=== PATIENT | female | born 1970 | race Caucasian/White ===

== ENCOUNTER 2018-04-18 04:41 | Emergency (ER) | payer BC ==
[~2018-04-18] VITALS: Ht 162.6 cm; Wt 104.3 kg
[~2018-04-18 04:41] MED LIST: ALBU90OI INH; AZIT250 PO; BELPHEELB PO; BENZ100A PO; BLOOD PRESSURE MED; BUTASPCAF PO; Bactrim Ds Tab1 EACH PO; CARI350 PO; CEPH500 PO; CIPR500 PO; CLIN150 PO; CYCL10 PO; Chantix0.5 MG PO; Cleocin HCl150 MG PO; DIAZ5; DOXY100 PO; DULO30; DULO60; Dyazide 37.5-21 EACH PO; ESOM20; ESTR2 PO; ESTRADIOL; ESTRADIOL1 MG PO; FLUC150A PO; GABA600 PO; HYDACE10B PO; HYDACE5; HYDACE5 PO; HYDR1TAB94 PO; HYOS.125 SL; IBUP800; Keflex500 MG PO; LISI5; METPRE4DP PO; MUPI2TC TOP; Macrobid 100 M100 MG PO; Norco 5-325 Ta1 EACH PO; OXYACE5T PO; OXYB5 PO; Omeprazole20 M1; PHENA200 PO; PREG25; PROC25S PR; PROG100; Percocet 5-3251 EACH PO; Prilosec20 MG PO; Pyridium200 MG PO; TOLT4 PO; TRAM50 PO; Ultram50 MG PO; VICODIN 5-3001 EACH PO; Vistaril25 MG PO; Zofran Odt4 MG SL; Zofran4 MG PO
== END 2018-04-18 06:10 | disposition home or self-care (01) ==
LOC: ER 04:41
DX: S93.401A Sprain of unspecified ligament of right ankle, initial encounter (principal); F17.210 Nicotine dependence, cigarettes, uncomplicated; Z88.8 Allergy status to other drugs, medicaments and biological substances; Z79.899 Other long term (current) drug therapy; W00.0XXA Fall on same level due to ice and snow, initial encounter
CPT/HCPCS: 73590; 73600; 96372; 99283-25; J1885

== ENCOUNTER 2018-05-04 12:17 | Emergency (ER) | payer BC ==
[~2018-05-04] VITALS: Ht 162.6 cm; Wt 113.4 kg
[2018-05-04 13:45] LABS: Calcium, Ionized (POC) 1.11 mmol/L (1.10-1.46); Chloride (POC) 105 mmol/L (98-108); Creatinine (POC) 0.5 mg/dL (0.6-1.0); Glucose (ISTAT POC) 137 mg/dL (70-99); Hemoglobin (POC) 15.3 g/dL (12.0-16.0); Potassium (POC) 4.2 mmol/L (3.5-5.5); Sodium (POC) 141 mmol/L (135-148); Total CO2 (POC) 25 mmol/L (21-32)
== END 2018-05-04 14:41 | disposition home or self-care (01) ==
LOC: ER 12:17
PROVIDERS: Physician Assistant
DX: R51 Headache (principal); R03.0 Elevated blood-pressure reading, without diagnosis of hypertension; Z88.8 Allergy status to other drugs, medicaments and biological substances; Z79.899 Other long term (current) drug therapy; F17.210 Nicotine dependence, cigarettes, uncomplicated
CPT/HCPCS: 36415; 80047; 85014; 96361; 96374; 96375; 99284-25; J1100; J1200; J1885; J2405; J2765; J7030

== ENCOUNTER 2018-09-12 04:35 | Observation (INO) | payer BC ==
[~2018-09-12] VITALS: Ht 162.6 cm; Wt 137.1 kg
[2018-09-12 05:12] LABS: BASOPHILS ABSOLUTE AUTO 0.07 K/mm3 (0.00-0.23); BASOPHILS PERCENT AUTO 1 % (0-2); EOSINOPHILS ABSOLUTE AUTO 0.29 K/mm3 (0.00-0.68); EOSINOPHILS PERCENT AUTO 3 % (0-6); Hematocrit 39.5 % (33.0-51.0); Hemoglobin 12.5 g/dL (11.5-16.0); IMMATURE GRAN ABSOLUTE AUTO 0.06 K/mm3 (0.00-0.10); IMMATURE GRAN PERCENT AUTO 1 % (0-1); LYMPHOCYTES ABSOLUTE AUTO 3.59 K/mm3 (0.84-5.20); LYMPHOCYTES PERCENT AUTO 33 % (21-46); MONOCYTES ABSOLUTE AUTO 0.94 K/mm3 (0.16-1.47); MONOCYTES PERCENT AUTO 9 % (4-13); Mean Corpuscular HGB 31.5 pg (26.0-34.0); Mean Corpuscular HGB Conc 31.6 g/dL (31.5-36.5); Mean Corpuscular Volume 100 fL (80-100); Mean Platelet Volume 10.5 fL (9.1-12.4); NEUTROPHILS ABSOLUTE AUTO 6.05 K/mm3 (1.96-9.15); NEUTROPHILS PERCENT AUTO 55 % (41-73); Platelet Count 194 K/mm3 (150-400); RDW Coefficient Variation 15.1 % (11.7-14.2); RDW Standard Deviation 55.3 fL (35.1-46.3); Red Blood Cell Count 3.97 M/mm3 (3.80-5.20)
[2018-09-12] MEDS ORDERED: DULO60 PO (05:13)
[2018-09-12] MEDS ORDERED: GABA300 PO ×2 (05:14→12:02)
[2018-09-12 05:28] LABS: International Normalized Ratio 0.96; Prothrombin Time Results 10.2 Sec (9.7-11.5)
[2018-09-12 05:32] LABS: Alanine Aminotransfer (ALT/SGP 300 U/L (12-78); Albumin, Blood 2.9 g/dL (3.4-5.0); Albumin/Globulin Ratio 0.7 (0.8-1.8); Alk Phos 119 U/L (50-136); Anion Gap 6 mmol/L (6-16); Aspartate Aminotrans (AST/SGOT 41 U/L (12-37); Bilirubin, Total 0.3 mg/dL (0.1-1.0); Blood Urea Nitrogen 15 mg/dL (8-24); Bun/Creatinine Ratio 22.8 (12.0-20.0); CO2, Blood 32 mmol/L (21-32); Calcium, Blood 8.5 mg/dL (8.5-10.1); Chloride, Blood 101 mmol/L (98-108); Creatinine, Blood 0.66 mg/dL (0.40-1.00); Globulin, Blood 3.9 g/dL (2.2-4.0); Glomerular Filtration Rate >60 (60-); Glucose, Blood 133 mg/dL (70-99); Potassium, Blood 3.6 mmol/L (3.5-5.5); Sodium, Blood 139 mmol/L (136-145); Total Protein, Blood 6.8 g/dL (6.4-8.2); Troponin I 0.096 ng/mL (0.000-0.040)
[2018-09-12] MEDS ORDERED: Hydrocodone-Ap1 EA20 PO (12:03)
[2018-09-12] MEDS ORDERED: DULO30 PO (12:50)
--- NOTE | 2018-09-12 14:51 | NUR ---
ECHOCARDIOGRAM COMPLETED
[2018-09-12 16:25] LABS: C-REACTIVE PROTEIN, EXT RANGE 2.54 mg/dL (0.000-0.300)
[2018-09-12 16:28] LABS: Troponin I 0.068 ng/mL (0.000-0.040)
[2018-09-12 16:36] LABS: Source, Urine Voided
[2018-09-12 16:47] LABS: Bilirubin, Urine Neg (Neg); Blood, Urine 1+ (Neg); Glucose Qualitative, Urine Neg (Neg); Ketones, Urine Neg (Neg); Leukocyte Esterase, Urine 1+ (Neg); Nitrite, Urine Neg (Neg); Protein, Urine 1+ (Neg); Urobilinogen, Urine NORM (Normal)
[2018-09-12 17:02] LABS: Color, Urine Yellow (P-Yellow)
[2018-09-12 17:03] LABS: Appearance, Urine Clear (Clear); Red Blood Cells, Urine 0-2 /hpf (0-2)
[2018-09-12 17:04] LABS: Bacteria Mod /hpf; Squamous Epithelial Cells Mod /hpf (Few)
--- NOTE | 2018-09-12 19:19 | NUR ---
SHIFT SUMMARY KEVIN ARRIVED THIS AFTERNOON FROM THE ED. COMPLAINED OF HEAD/NECK PAIN AND LLE NUMBNESS/TINGLING. GIVEN TORADOL AND TYLENOL. DENIED NAUSEA, WANTED DIET ADVANCED, THIS IS OK PER DR FREEDMAN. ENCOURAGED HER TO START SLOW. PT LEFT FLOOR TO SMOKE, ADVISED THAT WE CANNOT READ HER HEART MONITOR UNLESS SHE IS IN THE HOSPITAL, SHE IS AWARE. INDEPENDENT IN ROOM, TOOK MEDS PRESCRIBED. CLEARANCE SWAB AND UA SENT FOR ESBL CLEARANCE. CALL LIGHT IN REACH, REPORT GIVEN TO NIGHT NURSE
--- NOTE | 2018-09-13 04:28 | NUR ---
SHIFT SUMMARY: 48 Y/O MORBID OBESE FEMALE RESTED COMFORTABLY ALL SHIFT, DECLINED TO TAKE SCHEDULED TORADOL OR ANY PRN TYLENOL ALL SHIFT, EAGER TO RETURN HOME TODAY, WENT OUTSIDE TO SMOKE X 2 THIS SHIFT WITH SPOUSE, TELEMETRY REFLECTS NSR, DENIES PAIN OR NAUSEA, BED LOW POSITION, CALL LIGHT AT SIDE.
[2018-09-13 07:29] LABS: BASOPHILS ABSOLUTE AUTO 0.07 K/mm3 (0.00-0.23); BASOPHILS PERCENT AUTO 1 % (0-2); EOSINOPHILS PERCENT AUTO 4 % (0-6); Hematocrit 38.8 % (33.0-51.0); Hemoglobin 12.1 g/dL (11.5-16.0); IMMATURE GRAN ABSOLUTE AUTO 0.05 K/mm3 (0.00-0.10); IMMATURE GRAN PERCENT AUTO 1 % (0-1); LYMPHOCYTES ABSOLUTE AUTO 3.13 K/mm3 (0.84-5.20); LYMPHOCYTES PERCENT AUTO 37 % (21-46); MONOCYTES ABSOLUTE AUTO 0.63 K/mm3 (0.16-1.47); MONOCYTES PERCENT AUTO 8 % (4-13); Mean Corpuscular HGB 31.7 pg (26.0-34.0); Mean Corpuscular HGB Conc 31.2 g/dL (31.5-36.5); Mean Corpuscular Volume 102 fL (80-100); Mean Platelet Volume 10.5 fL (9.1-12.4); NEUTROPHILS PERCENT AUTO 50 % (41-73); Platelet Count 187 K/mm3 (150-400); RDW Coefficient Variation 15.2 % (11.7-14.2); RDW Standard Deviation 56.4 fL (35.1-46.3); Red Blood Cell Count 3.82 M/mm3 (3.80-5.20); White Blood Cell Count 8.38 K/mm3 (4.00-11.30)
[2018-09-13 07:49] LABS: Magnesium, Blood 1.5 mg/dL (1.6-2.4)
[2018-09-13 07:50] LABS: Alanine Aminotransfer (ALT/SGP 212 U/L (12-78); Albumin, Blood 2.8 g/dL (3.4-5.0); Albumin/Globulin Ratio 0.7 (0.8-1.8); Alk Phos 118 U/L (50-136); Anion Gap 6 mmol/L (6-16); Aspartate Aminotrans (AST/SGOT 33 U/L (12-37); Bilirubin, Total 0.3 mg/dL (0.1-1.0); Blood Urea Nitrogen 15 mg/dL (8-24); CO2, Blood 28 mmol/L (21-32); Calcium, Blood 8.2 mg/dL (8.5-10.1); Chloride, Blood 105 mmol/L (98-108); Creatinine, Blood 0.65 mg/dL (0.40-1.00); Globulin, Blood 3.8 g/dL (2.2-4.0); Glomerular Filtration Rate >60 (60-); Glucose, Blood 146 mg/dL (70-99); Potassium, Blood 3.9 mmol/L (3.5-5.5); Sodium, Blood 139 mmol/L (136-145); Total Protein, Blood 6.6 g/dL (6.4-8.2); Troponin I 0.049 ng/mL (0.000-0.040)
[2018-09-13] MEDS ORDERED: LISI20 PO (12:01)
[2018-09-13] MEDS ORDERED: HYDCHL25 PO (12:02)
--- NOTE | 2018-09-13 14:36 | NUR ---
DISCHARGE NOTE PT LEFT WALKING WITH HER . MEDS FAXED TO PHARMACY, CASE MANAGEMENT SET UP WITH [facility] FOR PCP, PIV REMOVED. PAPERWORK REVIEWED WITH PT. BELONGINGS SENT HOME WITH PT. HTN EDUCATION AND BP MED EDUCATION GIVEN
--- NOTE | 2018-09-13 15:20 | NUR ---
DISCHARGE SUMMARY KEVIN LEFT WITH BY CAR TO GO HOME. PIV REMOVED, MEDS FAXED TO PHARMACY, PAPERWORK GONE OVER. TEACHING DONE ON IMPORTANCE OF TAKING HIGH BLOOD PRESSURE MEDS AND HOW DAMAGING UNTREATED HTN CAN BE. VAN WILL CALL HER TO SET UP NEW PCP APPT WITH [facility]
== END 2018-09-13 14:15 | disposition home or self-care (01) ==
LOC: ER 04:35 → MEDS 04:36 → ENPENDDIS 09-13 11:51 → MEDS 09-13 14:15
PROVIDERS: Emergency Medicine; ADMIT Internal Medicine
DX: I16.0 Hypertensive urgency (principal); K52.9 Noninfective gastroenteritis and colitis, unspecified; I51.7 Cardiomegaly; R77.8 Other specified abnormalities of plasma proteins; G89.29 Other chronic pain; F17.210 Nicotine dependence, cigarettes, uncomplicated; E66.01 Morbid (severe) obesity due to excess calories; Z88.8 Allergy status to other drugs, medicaments and biological substances; Z88.1 Allergy status to other antibiotic agents; Z79.899 Other long term (current) drug therapy
CPT/HCPCS: 36415; 70450; 71046; 80053; 81001; 82550; 83605; 83735; 83880; 84484; 85025; 85610; 85651; 86140; 87077; 87081; 87086; 87186; 93005; 93010; 93306; 96361; 96372; 96374; 96375; 96376; 99285-25; A9270; G0378; J1650; J1885; J2405; J3010; J7120

== ENCOUNTER 2018-10-19 18:13 | Emergency (ER) | payer BC ==
[~2018-10-19] VITALS: Ht 162.6 cm; Wt 104.3 kg
[~2018-10-19 18:13] MED LIST changes: +DULO30 PO; +DULO60 PO; +GABA300 PO; +HYDCHL25 PO; +Hydrocodone-Ap1 EA20 PO; +LISI20 PO
[2018-10-19 19:07] LABS: BASOPHILS ABSOLUTE AUTO 0.08 K/mm3 (0.00-0.23); BASOPHILS PERCENT AUTO 0 % (0-2); EOSINOPHILS ABSOLUTE AUTO 0.13 K/mm3 (0.00-0.68); EOSINOPHILS PERCENT AUTO 1 % (0-6); Hematocrit 43.6 % (33.0-51.0); Hemoglobin 14.3 g/dL (11.5-16.0); IMMATURE GRAN ABSOLUTE AUTO 0.11 K/mm3 (0.00-0.10); IMMATURE GRAN PERCENT AUTO 1 % (0-1); LYMPHOCYTES ABSOLUTE AUTO 3.64 K/mm3 (0.84-5.20); LYMPHOCYTES PERCENT AUTO 19 % (21-46); MONOCYTES ABSOLUTE AUTO 1.12 K/mm3 (0.16-1.47); MONOCYTES PERCENT AUTO 6 % (4-13); Mean Corpuscular HGB Conc 32.8 g/dL (31.5-36.5); Mean Corpuscular Volume 98 fL (80-100); NEUTROPHILS ABSOLUTE AUTO 14.46 K/mm3 (1.96-9.15); NEUTROPHILS PERCENT AUTO 74 % (41-73); RDW Coefficient Variation 14.4 % (11.7-14.2); RDW Standard Deviation 51.8 fL (35.1-46.3); Red Blood Cell Count 4.47 M/mm3 (3.80-5.20); White Blood Cell Count 19.54 K/mm3 (4.00-11.30)
[2018-10-19 19:27] LABS: Mean Platelet Volume 10.7 fL (9.1-12.4); Platelet Count 263 K/mm3 (150-400)
[2018-10-19 20:36] LABS: Alanine Aminotransfer (ALT/SGP 25 U/L (12-78); Albumin, Blood 3.4 g/dL (3.4-5.0); Albumin/Globulin Ratio 0.8 (0.8-1.8); Alk Phos 104 U/L (50-136); Anion Gap 6 mmol/L (6-16); Aspartate Aminotrans (AST/SGOT 20 U/L (12-37); Bilirubin, Total 0.6 mg/dL (0.1-1.0); Blood Urea Nitrogen 17 mg/dL (8-24); Bun/Creatinine Ratio 27.2 (12.0-20.0); CO2, Blood 29 mmol/L (21-32); Calcium, Blood 8.9 mg/dL (8.5-10.1); Chloride, Blood 102 mmol/L (98-108); Creatinine, Blood 0.62 mg/dL (0.40-1.00); Globulin, Blood 4.5 g/dL (2.2-4.0); Glomerular Filtration Rate >60 (60-); Glucose, Blood 107 mg/dL (70-99); Potassium, Blood 4.2 mmol/L (3.5-5.5); Sodium, Blood 137 mmol/L (136-145); Total Protein, Blood 7.9 g/dL (6.4-8.2)
[2018-10-19 21:05] LABS: Source, Urine Clean Catch
[2018-10-19 21:09] LABS: Bilirubin, Urine Neg (Neg); Blood, Urine 4+ (Neg); Glucose Qualitative, Urine Neg (Neg); Ketones, Urine Neg (Neg); Leukocyte Esterase, Urine 3+ (Neg); Nitrite, Urine Pos (Neg); Protein, Urine 3+ (Neg); Urobilinogen, Urine NORM (Normal); pH, Urine 6.5 (5.0-8.0)
[2018-10-19 21:18] LABS: Appearance, Urine Cloudy (Clear); Color, Urine Yellow (P-Yellow)
[2018-10-19 21:19] LABS: White Blood Cells, Urine TNTC /hpf (0-5)
[2018-10-19 21:20] LABS: Bacteria Many /hpf; Red Blood Cells, Urine 0-2 /hpf (0-2); Squamous Epithelial Cells Rare /hpf (Few)
[2018-10-19] MEDS ORDERED: CEFD300 PO (22:02)
[2018-10-19] MEDS ORDERED: Roxicodone5 MG PO (22:02)
== END 2018-10-19 22:25 | disposition home or self-care (01) ==
LOC: ER 18:13
PROVIDERS: Emergency Medicine
DX: N12 Tubulo-interstitial nephritis, not specified as acute or chronic (principal); G43.909 Migraine, unspecified, not intractable, without status migrainosus; F17.200 Nicotine dependence, unspecified, uncomplicated; Z88.8 Allergy status to other drugs, medicaments and biological substances; Z88.6 Allergy status to analgesic agent; Z79.899 Other long term (current) drug therapy
CPT/HCPCS: 36415; 74177; 80053; 81001; 83690; 85025; 87077; 87086; 87147; 87186; 96365-59; 96375; 99284-25; A9270; J0696; J1170; J1885; J2405; Q9967

== ENCOUNTER 2018-10-20 19:00 | Emergency (ER) | payer BC ==
[~2018-10-20] VITALS: Ht 162.6 cm; Wt 108.9 kg
[~2018-10-20 19:00] MED LIST changes: +CEFD300 PO; +Roxicodone5 MG PO
== END 2018-10-20 19:36 | disposition home or self-care (01) ==
LOC: ER 19:00
DX: N12 Tubulo-interstitial nephritis, not specified as acute or chronic (principal); F17.200 Nicotine dependence, unspecified, uncomplicated; Z88.8 Allergy status to other drugs, medicaments and biological substances; G43.909 Migraine, unspecified, not intractable, without status migrainosus; Z79.899 Other long term (current) drug therapy
CPT/HCPCS: 99281; A9270; A9270-GY

== ENCOUNTER 2019-02-18 11:47 | Emergency (ER) | payer BC ==
[~2019-02-18] VITALS: Ht 165.1 cm; Wt 108.9 kg
== END 2019-02-18 13:20 | disposition home or self-care (01) ==
LOC: ER 11:47
DX: R07.81 Pleurodynia (principal); G43.909 Migraine, unspecified, not intractable, without status migrainosus; Z88.8 Allergy status to other drugs, medicaments and biological substances; Z79.899 Other long term (current) drug therapy; Z87.891 Personal history of nicotine dependence; Y04.2XXA Assault by strike against or bumped into by another person, initial encounter
CPT/HCPCS: 71100; 99283-25

== ENCOUNTER 2019-05-15 13:37 | Emergency (ER) | payer OTHER ==
[~2019-05-15] VITALS: Ht 177.8 cm; Wt 136.1 kg
[~2019-05-15 13:37] MED LIST changes: -Hydrocodone-Ap1 EA20 PO; +NORCO 10-325 T1 EACH PO
[2019-05-15] MEDS ORDERED: ATORVASTATIN CA40 M1 PO (15:18)
[2019-05-15] MEDS ORDERED: GABA300 PO (15:19)
[2019-05-15] MEDS ORDERED: HYDCHL50 PO (15:20)
[2019-05-15] MEDS ORDERED: METF500 PO (15:22)
[2019-05-15 15:34] LABS: BASOPHILS ABSOLUTE AUTO 0.09 K/mm3 (0.00-0.23); BASOPHILS PERCENT AUTO 0 % (0-2); EOSINOPHILS ABSOLUTE AUTO 0.02 K/mm3 (0.00-0.68); EOSINOPHILS PERCENT AUTO 0 % (0-6); Hematocrit 41.8 % (33.0-51.0); Hemoglobin 12.7 g/dL (11.5-16.0); IMMATURE GRAN ABSOLUTE AUTO 0.45 K/mm3 (0.00-0.10); IMMATURE GRAN PERCENT AUTO 2 % (0-1); LYMPHOCYTES ABSOLUTE AUTO 2.18 K/mm3 (0.84-5.20); LYMPHOCYTES PERCENT AUTO 9 % (21-46); MONOCYTES ABSOLUTE AUTO 1.84 K/mm3 (0.16-1.47); MONOCYTES PERCENT AUTO 7 % (4-13); Mean Corpuscular HGB 31.6 pg (26.0-34.0); Mean Corpuscular HGB Conc 30.4 g/dL (31.5-36.5); Mean Corpuscular Volume 104 fL (80-100); NEUTROPHILS ABSOLUTE AUTO 20.54 K/mm3 (1.96-9.15); NEUTROPHILS PERCENT AUTO 82 % (41-73); NRBC ABSOLUTE 0.02 K/mm3 (0.00-0.02); NRBC Auto 0.1 /100 WBC (0.0-0.2); Platelet Count 341 K/mm3 (150-400); RDW Coefficient Variation 13.8 % (11.7-14.2); RDW Standard Deviation 53.7 fL (35.1-46.3); Red Blood Cell Count 4.02 M/mm3 (3.80-5.20); White Blood Cell Count 25.12 K/mm3 (4.00-11.30)
[2019-05-15 15:51] LABS: Acetaminophen, Random 5.6 ug/mL (10.0-30.0); Alanine Aminotransfer (ALT/SGP 87 U/L (12-78); Albumin, Blood 2.9 g/dL (3.4-5.0); Albumin/Globulin Ratio 0.7 (0.8-1.8); Alk Phos 146 U/L (50-136); Anion Gap 6 mmol/L (6-16); Aspartate Aminotrans (AST/SGOT 92 U/L (12-37); Bilirubin, Total 0.1 mg/dL (0.1-1.0); Blood Urea Nitrogen 22 mg/dL (8-24); Bun/Creatinine Ratio 27.2 (12.0-20.0); CO2, Blood 32 mmol/L (21-32); Calcium, Blood 8.6 mg/dL (8.5-10.1); Chloride, Blood 100 mmol/L (98-108); Creatinine, Blood 0.81 mg/dL (0.40-1.00); Ethanol (Alcohol), Blood, Med <3 mg/dL; Globulin, Blood 4.3 g/dL (2.2-4.0); Glomerular Filtration Rate >60 (60-); Glucose, Blood 130 mg/dL (70-99); Potassium, Blood 4.6 mmol/L (3.5-5.5); Salicylate 2.7 mg/dL (2.8-20.0); Sodium, Blood 138 mmol/L (136-145); Total Protein, Blood 7.2 g/dL (6.4-8.2)
[2019-05-15 15:52] LABS: U Amphetamine Screen DETECTED; U Barbituate Screen Not Detected; U Benzodiazapine Screen Not Detected; U Buprenorphine Screen Not Detected; U Cannabinoids Screen Not Detected; U Cocaine Screen Not Detected; U Methadone Screen Not Detected; U Methamphetamine Screen DETECTED; U Opiates Screen DETECTED; U Oxycodone Screen Not Detected; U Phencyclidine Screen Not Detected; U Propoxyphene Screen Not Detected
== END 2019-05-15 17:10 | disposition home or self-care (01) ==
LOC: ER 13:37
PROVIDERS: Emergency Medicine
DX: T40.2X1A Poisoning by other opioids, accidental (unintentional), initial encounter (principal); F15.10 Other stimulant abuse, uncomplicated; Z87.891 Personal history of nicotine dependence; Z79.899 Other long term (current) drug therapy
CPT/HCPCS: 36415; 80053; 85025; 96374; 99284-25; G0480; J2310

== ENCOUNTER → 2019-06-04 | Outpatient (CLI) | payer OTHER ==
[~2019-06-04] MED LIST changes: +ATORVASTATIN CA40 M1 PO; +HYDCHL50 PO; +METF500 PO
[2019-06-04 18:44] LABS: Source, Urine Clean Catch
[2019-06-04 18:47] LABS: Bilirubin, Urine Neg (Neg); Blood, Urine Neg (Neg); Glucose Qualitative, Urine Neg (Neg); Ketones, Urine 1+ (Neg); Leukocyte Esterase, Urine 1+ (Neg); Nitrite, Urine Neg (Neg); Protein, Urine Neg (Neg); Specific Gravity, Urine 1.005 (1.003-1.022); Urobilinogen, Urine 1+ (Normal)
[2019-06-04 18:55] LABS: Appearance, Urine Clear (Clear); Color, Urine Yellow (P-Yellow)
[2019-06-04 18:57] LABS: Bacteria Few /hpf; Red Blood Cells, Urine 0-2 /hpf (0-2); Squamous Epithelial Cells Few /hpf (Few)
== END | disposition home or self-care (01) ==
LOC: LAB 18:42 → LAB SHORT 18:42
PROVIDERS: Nurse Practitioner Family
DX: R32 Unspecified urinary incontinence (principal)
CPT/HCPCS: 81001; 87086

== ENCOUNTER → 2020-02-05 | Outpatient (CLI) | payer OTHER ==
[~2020-02-05] MED LIST changes: +ALPR.25; +AMLO5 PO; +AMOCLA875 PO; +ATORVASTATIN CA40 MG PO; +BISA10S PR; +BUPRENORPHINE HC8 MG SL; +DOCU LIQUI50 MG/5 ML PO; +FLUTICASONE PRO16 GM; +LACT PO; +LIOT5 PO; +Lisinopril-Hct1 EAC4 PO; +MECL25 PO; +METO25ER PO; -NORCO 10-325 T1 EACH PO; +NYSTATIN100000 UN1 PO; +Ondansetron Odt8 MG MM; +POTA10T PO; +Prinivil10 MG PO; +SULFAMETHOXAZO1 EAC1 PO; +TOLT2 PO; +VISBIOME 112.51 EACH PO; +Ventolin/Prove6.7 GM INH
[2020-02-05 20:26] LABS: Appearance, Urine Hazy (Clear); Blood, Urine 1+ (Neg); Color, Urine Yellow (P-Yellow); Glucose Qualitative, Urine Neg (Neg); Ketones, Urine 1+ (Neg); Leukocyte Esterase, Urine 2+ (Neg); Nitrite, Urine Neg (Neg); Protein, Urine 2+ (Neg); Urobilinogen, Urine 1+ (Normal)
[2020-02-05 21:09] LABS: Bilirubin, Urine 1+ (Neg)
[2020-02-05 21:10] LABS: Bacteria Mod /hpf; Mucus Light (0-Heavy); Red Blood Cells, Urine 0-2 /hpf (0-2); Squamous Epithelial Cells Mod /hpf (Few)
== END | disposition home or self-care (01) ==
LOC: LAB SHORT 12:00 → LAB 12:00
PROVIDERS: Nurse Practitioner Family
DX: N39.46 Mixed incontinence (principal)
CPT/HCPCS: 81001; 87077; 87086; 87186

== ENCOUNTER 2020-06-03 16:49 | Inpatient (IN) | payer OTHER ==
[~2020-06-03] VITALS: Ht 162.6 cm; Wt 133.0 kg
[~2020-06-03 16:49] MED LIST changes: -ALPR.25; -AMLO5 PO; -AMOCLA875 PO; -ATORVASTATIN CA40 MG PO; -BISA10S PR; -BUPRENORPHINE HC8 MG SL; -DOCU LIQUI50 MG/5 ML PO; -DULO60 PO; -FLUTICASONE PRO16 GM; -GABA300 PO; -HYDCHL50 PO; -LACT PO; -LIOT5 PO; -Lisinopril-Hct1 EAC4 PO; -MECL25 PO; -METF500 PO; -METO25ER PO; -NYSTATIN100000 UN1 PO; -Ondansetron Odt8 MG MM; -POTA10T PO; -Prinivil10 MG PO; -SULFAMETHOXAZO1 EAC1 PO; -TOLT2 PO; -VISBIOME 112.51 EACH PO; -Ventolin/Prove6.7 GM INH
[2020-06-03 17:34] LABS: Hematocrit 44.5 % (33.0-51.0); Hemoglobin 14.2 g/dL (11.5-16.0); Mean Corpuscular HGB 31.6 pg (26.0-34.0); Mean Corpuscular HGB Conc 31.9 g/dL (31.5-36.5); Mean Corpuscular Volume 99 fL (80-100); Mean Platelet Volume 10.7 fL (9.1-12.4); Platelet Count 268 K/mm3 (150-400); RDW Coefficient Variation 14.3 % (11.7-14.2); RDW Standard Deviation 52.5 fL (35.1-46.3); Red Blood Cell Count 4.49 M/mm3 (3.80-5.20); White Blood Cell Count 15.83 K/mm3 (4.00-11.30)
[2020-06-03 17:48] LABS: International Normalized Ratio 1.03; Prothrombin Time Results 11.1 Sec (9.7-11.5)
[2020-06-03 17:55] LABS: BASOPHILS ABSOLUTE MAN 0.15 K/mm3 (0.00-0.23); BASOPHILS PERCENT MAN 1 % (0-2); EOSINOPHILS PERCENT MAN 0 % (0-6); LYMPHOCYTES ABSOLUTE MAN 3.16 K/mm3 (0.84-5.20); LYMPHOCYTES PERCENT MAN 20 % (21-46); MONOCYTES ABSOLUTE MAN 1.58 K/mm3 (0.16-1.47); MONOCYTES PERCENT MAN 10 % (4-13); NEUTROPHILS ABSOLUTE MAN 10.92 K/mm3 (1.96-9.15); SEG NEUTROPHILS PERCENT MAN 69 % (41-73); TOTAL CELLS COUNTED 100
[2020-06-03 17:57] LABS: Alanine Aminotransfer (ALT/SGP 67 U/L (12-78); Albumin, Blood 3.1 g/dL (3.4-5.0); Albumin/Globulin Ratio 0.7 (0.8-1.8); Alk Phos 111 U/L (50-136); Anion Gap 4 mmol/L (6-16); Aspartate Aminotrans (AST/SGOT 99 U/L (12-37); Bilirubin, Total 0.3 mg/dL (0.1-1.0); Blood Urea Nitrogen 19 mg/dL (8-24); Bun/Creatinine Ratio 28.5 (12.0-20.0); CO2, Blood 32 mmol/L (21-32); Calcium, Blood 8.7 mg/dL (8.5-10.1); Chloride, Blood 99 mmol/L (98-108); Creatinine, Blood 0.67 mg/dL (0.40-1.00); Ethanol (Alcohol), Blood, Med <3 mg/dL; Globulin, Blood 4.3 g/dL (2.2-4.0); Glomerular Filtration Rate >60 (60-); Glucose, Blood 130 mg/dL (70-99); Sodium, Blood 135 mmol/L (136-145); Total Protein, Blood 7.4 g/dL (6.4-8.2)
[2020-06-03 18:04] LABS: Salicylate 4.6 mg/dL (2.8-20.0)
[2020-06-03 18:05] LABS: Acetaminophen, Random <2.0 ug/mL (10.0-30.0)
[2020-06-03 18:16] LABS: Osmolality, Serum 298 mos/KG (275-300)
[2020-06-03 18:19] LABS: Bicarbonate Venous 31.8 mmol/L (24.0-30.0); PCO2 Venous 55.5 mmHg (38-42); PO2 Venous 130 mmHg (38-42)
[2020-06-03 19:19] LABS: Creatine Kinase MB 5.4 ng/mL (0.0-3.6); Creatine Kinase MB Index 0.5 (0.0-4.0)
[2020-06-03 19:40] LABS: Source, Urine Catheter
[2020-06-03 19:44] LABS: Appearance, Urine Hazy (Clear); Bilirubin, Urine Neg (Neg); Blood, Urine 3+ (Neg); Color, Urine Yellow (P-Yellow); Glucose Qualitative, Urine Neg (Neg); Ketones, Urine Neg (Neg); Leukocyte Esterase, Urine 2+ (Neg); Nitrite, Urine Pos (Neg); Protein, Urine 2+ (Neg); Specific Gravity, Urine 1.025 (1.003-1.022); Urobilinogen, Urine NORM (Normal)
[2020-06-03 19:52] LABS: Hyaline Casts 0-2 /lpf (0-2)
[2020-06-03 19:53] LABS: Bacteria Many /hpf; Squamous Epithelial Cells Few /hpf (Few)
[2020-06-03 19:56] LABS: U Amphetamine Screen DETECTED; U Barbituate Screen Not Detected; U Benzodiazapine Screen Not Detected; U Buprenorphine Screen DETECTED; U Cannabinoids Screen Not Detected; U Cocaine Screen Not Detected; U Methadone Screen Not Detected; U Methamphetamine Screen DETECTED; U Opiates Screen Not Detected; U Oxycodone Screen Not Detected; U Phencyclidine Screen Not Detected; U Propoxyphene Screen Not Detected
[2020-06-03] MEDS ORDERED: BUPRENORPHINE HC8 MG SL (20:45)
[2020-06-03] MEDS ORDERED: Ventolin/Prove6.7 GM INH (20:45)
[2020-06-03] MEDS ORDERED: DULO60 PO (20:46)
[2020-06-03] MEDS ORDERED: HYDACE10B PO (20:46)
[2020-06-03] MEDS ORDERED: GABA300 PO ×3 (20:47)
[2020-06-03] MEDS ORDERED: METF500 PO (20:48)
[2020-06-03] MEDS ORDERED: HYDCHL50 PO (20:48)
[2020-06-03] MEDS ORDERED: FLUTICASONE PRO16 GM (20:49)
[2020-06-03] MEDS ORDERED: Bactrim Ds Tab1 EACH PO (21:41)
[2020-06-04 01:50] LABS: Creatine Kinase MB 3.6 ng/mL (0.0-3.6); Creatine Kinase MB Index 0.5 (0.0-4.0)
[2020-06-04 06:23] LABS: BASOPHILS ABSOLUTE AUTO 0.09 K/mm3 (0.00-0.23); BASOPHILS PERCENT AUTO 1 % (0-2); EOSINOPHILS ABSOLUTE AUTO 0.11 K/mm3 (0.00-0.68); EOSINOPHILS PERCENT AUTO 1 % (0-6); Hematocrit 44.9 % (33.0-51.0); Hemoglobin 14.1 g/dL (11.5-16.0); IMMATURE GRAN ABSOLUTE AUTO 0.08 K/mm3 (0.00-0.10); IMMATURE GRAN PERCENT AUTO 1 % (0-1); LYMPHOCYTES ABSOLUTE AUTO 3.39 K/mm3 (0.84-5.20); LYMPHOCYTES PERCENT AUTO 22 % (21-46); MONOCYTES ABSOLUTE AUTO 1.18 K/mm3 (0.16-1.47); MONOCYTES PERCENT AUTO 8 % (4-13); Mean Corpuscular HGB 31.6 pg (26.0-34.0); Mean Corpuscular HGB Conc 31.4 g/dL (31.5-36.5); Mean Corpuscular Volume 101 fL (80-100); Mean Platelet Volume 10.6 fL (9.1-12.4); NEUTROPHILS ABSOLUTE AUTO 10.43 K/mm3 (1.96-9.15); NEUTROPHILS PERCENT AUTO 68 % (41-73); Platelet Count 254 K/mm3 (150-400); RDW Coefficient Variation 14.2 % (11.7-14.2); Red Blood Cell Count 4.46 M/mm3 (3.80-5.20); White Blood Cell Count 15.28 K/mm3 (4.00-11.30)
[2020-06-04 06:40] LABS: Anion Gap 3 mmol/L (6-16); Blood Urea Nitrogen 16 mg/dL (8-24); Bun/Creatinine Ratio 21.7 (12.0-20.0); CO2, Blood 38 mmol/L (21-32); Calcium, Blood 8.6 mg/dL (8.5-10.1); Chloride, Blood 100 mmol/L (98-108); Creatinine, Blood 0.74 mg/dL (0.40-1.00); Glomerular Filtration Rate >60 (60-); Glucose, Blood 128 mg/dL (70-99); Potassium, Blood 3.7 mmol/L (3.5-5.5); Sodium, Blood 141 mmol/L (136-145)
--- NOTE | 2020-06-04 14:32 | NUR ---
HALDOL 2.5MG AND ADDITIONAL ATIVAN WERE GIVEN PER V/O FROM DR FREEDMAN
--- NOTE | 2020-06-04 15:30 | NUR ---
PT ARRIVAL... PT ARRIVED ON UNIT AT 1515, PT LAYING ON THE BED QUIET WITH EYES CLOSED AND SNORING. PT WAS MOVED OVER TO THE BED WITH 6 PERSON TRANSFER AND A SLIDER SHEET. PT WOKE, WAS DROWSY AND WAS ATTEMPTING TO PULL OUT HER NC. PT WAS QUICKLY PUT BACK INTO RESTRAINTS. PT IS HYPERTENSIVE ON ARRIVAL WITH BP AT 172/92, SR IN THE 60'S. TEMP 97.0. PT IS ON 3 L NC WITH O2 SATS AT 93%. PRECEDEX STARTED PER ORDERS. WILL CONTINUE TO MONITOR.
[2020-06-04] MEDS ORDERED: ALPR.25 (15:43)
--- NOTE | 2020-06-04 20:00 | NUR ---
ASSUMED PT CARE REPORT RECEIVED FROM FORD GARCIA AT 1910, ASSUMED PT CARE. PT CURRENTLY SEDATED ON PRECEDEX INF @ 0.4MCG/KG/HR TO LEFT FA ACCESS. DRESSING C/D/I, SITE WNL. NEW IV STARTED TO RIGHT AC, 20G, DRESSING PLACED. PT LUNG SOUNDS CLEAR TO UPPER AND DIMINISHED TO LOWER. PT ON 5L O2 PER NC. HR SINUS, SBP ELEVATED. ABD SOFT, BOWEL TONES PRESENT. UPPER EXT EDEMATOUS. SOFT WRIST RESTRAINTS SECURE TO WRISTS. PT RESPONSIVE TO VERBAL STIMULATION. DOES NOT ANSWER QUESTIONS. SEE FULL SHIFT ASSESSMENT.
[2020-06-05 03:37] LABS: BASOPHILS ABSOLUTE AUTO 0.07 K/mm3 (0.00-0.23); BASOPHILS PERCENT AUTO 1 % (0-2); EOSINOPHILS ABSOLUTE AUTO 0.28 K/mm3 (0.00-0.68); EOSINOPHILS PERCENT AUTO 3 % (0-6); Hematocrit 41.4 % (33.0-51.0); Hemoglobin 12.9 g/dL (11.5-16.0); IMMATURE GRAN ABSOLUTE AUTO 0.03 K/mm3 (0.00-0.10); IMMATURE GRAN PERCENT AUTO 0 % (0-1); LYMPHOCYTES ABSOLUTE AUTO 2.85 K/mm3 (0.84-5.20); LYMPHOCYTES PERCENT AUTO 28 % (21-46); MONOCYTES ABSOLUTE AUTO 0.57 K/mm3 (0.16-1.47); MONOCYTES PERCENT AUTO 6 % (4-13); Mean Corpuscular HGB Conc 31.2 g/dL (31.5-36.5); Mean Corpuscular Volume 100 fL (80-100); Mean Platelet Volume 10.6 fL (9.1-12.4); NEUTROPHILS ABSOLUTE AUTO 6.24 K/mm3 (1.96-9.15); NEUTROPHILS PERCENT AUTO 62 % (41-73); Platelet Count 222 K/mm3 (150-400); RDW Standard Deviation 51.1 fL (35.1-46.3); Red Blood Cell Count 4.16 M/mm3 (3.80-5.20); White Blood Cell Count 10.04 K/mm3 (4.00-11.30)
[2020-06-05 04:07] LABS: Alanine Aminotransfer (ALT/SGP 70 U/L (12-78); Albumin, Blood 2.7 g/dL (3.4-5.0); Albumin/Globulin Ratio 0.7 (0.8-1.8); Alk Phos 92 U/L (50-136); Anion Gap 4 mmol/L (6-16); Aspartate Aminotrans (AST/SGOT 64 U/L (12-37); Bilirubin, Total 0.4 mg/dL (0.1-1.0); Blood Urea Nitrogen 14 mg/dL (8-24); Bun/Creatinine Ratio 24.3 (12.0-20.0); CO2, Blood 35 mmol/L (21-32); CPK Creatine Kinase 270 U/L (26-193); Calcium, Blood 8.3 mg/dL (8.5-10.1); Chloride, Blood 104 mmol/L (98-108); Creatinine, Blood 0.58 mg/dL (0.40-1.00); Globulin, Blood 3.7 g/dL (2.2-4.0); Glomerular Filtration Rate >60 (60-); Glucose, Blood 110 mg/dL (70-99); Potassium, Blood 3.7 mmol/L (3.5-5.5); Sodium, Blood 143 mmol/L (136-145); Total Protein, Blood 6.4 g/dL (6.4-8.2); Troponin I 0.051 ng/mL (0.000-0.040)
[2020-06-05 04:20] LABS: Creatine Kinase MB Index 0.4 (0.0-4.0)
--- NOTE | 2020-06-05 06:08 | NUR ---
SHIFT SUMMARY PT CONTINUES TO BE SEDATED ON PRECEDEX (NOW AT 0.2MCG). NS INFUSING AT 100ML/HR. PT HAS 2 NEW IVS, 20G TO RIGHT AC AND 20G TO RIGHT HAND. BOTH SITES WLO, DRESSING C/D/I. SBP IMPROVED. LUNGS REMAIN CLEAR. O2 SATS >90 5 ON 3L PER NC. PT MUMBLING/SCREAMING LESS. REQUIRE A FEW DOSES OF PRN ATIVAN. BILATERAL SOFT RESTRAINTS SECURE. PT INCONTINENT OF URINE THROUGHOUT SHIFT. ATTENDS IN PLACE. WILL CONTINUE TO MONITOR AND REPORT TO ONCOMING SHIFT.
--- NOTE | 2020-06-05 07:45 | NUR ---
ASSUMED CARE RECEIVED REPORT FROM RADHA JONES. PT IS OBTUNDED - IN BED, ON 3L NC. SPO2 91%; MAP > 65; HR AT 48. PRECEDEX AT 0.2 MCG/KG/HOUR. NS AT 100 ML/HR. BED LOW AND LOCKED.
--- NOTE | 2020-06-05 11:38 | NUR ---
UPDATE DR. BURRELL WANTS TO HAVE PT TRY ANOTHER SBT. RT SWITCHED PT BACK TO SPONTANEOUS MODE. WILL CONTINUE TO MONITOR.
--- NOTE | 2020-06-05 12:33 | NUR ---
UPDATE PT WOKE UP, AND WAS SPEAKING IN COHERENT SENTENCES, ASKING WHERE SHE WAS AND WHAT WAS HAPPENING. SHE WAS ABLE TO TELL ME HER NAME, AND WHAT YEAR IT WAS, BUT NOT PLACE, SURROUNDINGS, OR EVENT. SHE WAS CONFUSED WHEN I TOLD HER ABOUT HER OVERDOSE. WE CLEANED HER UP, AND PUT ON A NEW ATTENDS. SHE WAS PULLING ON HER IV, AND TAKING HER OXYGEN OFF, AND APPEARED TO BE A LITTLE ANXIOUS AND STILL NOT COMPREHENDING WHAT WAS HAPPENING. SHE IS HAVING DIFFICULTY WITH HER SHORT TERM MEMORY, SHE COULDN'T TELL ME WHERE SHE WAS AFTER I HAD TOLD HER. SHE IS BACK TO SLEEP, NOW 4L OF OXYGEN. SHE HAD DENIED CHEST PAIN, SOB, ANXIETY, AND ANY MAJOR DISCOMFORT. HER MAIN ISSUE WAS TRYING TO GET UP, AND WAS CONFUSED WHY SHE COULDN'T GET UP (DIDN'T KNOW THAT IT WOULD BE A SAFETY CONCERN, AND SHE DIDN'T KNOW HOW LONG SHE HAD BEEN SLEEPING). RESTRAINTS REMAIN IN PLACE FOR THE TIME BEING, SHE CONTINUED TO PULL ON IVs AND OXYGEN. WILL CONTINUE TO MONITOR AND REASSESS.
--- NOTE | 2020-06-05 14:00 | NUR ---
UPDATE PT STARTING TO BECOME MORE AGITATED AND ANXIOUS, ATTEMPTING TO GET OUT OF BED, PULLING HER OXYGEN OFF - CAUSING HER SPO2 TO DROP IN THE 86-88% RANGE SO HER OXYGEN WAS TURNED UP TO 4L - AND YELLING OUT. SHE BELIEVES HER IS IN THE HOSPITAL AND THAT "WE" SHOULD KNOW THIS ALREADY. HALDOL WAS GIVEN, TO ENSURE PT SAFETY, PRECEDEX TURNED UP TO 0.3 MCG/KG/HOUR, HER HR WAS WNL. PT HAS BEEN SLEEPING SINCE, MAP >65, SPO2 93-96%. BED LOW AND LOCKED. CALLED AND UPDATED.
--- NOTE | 2020-06-05 18:00 | NUR ---
UPDATE/END OF SHIFT AFTER LAST NOTE, NO MAJOR OR ACUTE EVENTS. PT HAS BEEN RESTING/SLEEPING ON PRECEDEX 0.2 MCG/KG/HR. PT IS INTERMITTENTLY HYPERTENSIVE, HR ~50. REMAINS ON 4L WITH SPO2 93%. NS INFUSING AT 100 ML/HR. BED LOW AND LOCKED. UPDATED.
--- NOTE | 2020-06-05 18:24 | NUR ---
UPDATE AFTER REPOSITIONING PT WOKE UP AGITATED, PULLING ON RESTRAINTS, HOLDING HER BREATH AND BEARING DOWN, PULLED HER OXYGEN OFF, AND DESATTED INTO THE 80s%. HALDOL NOT AVAILABLE FOR ANOTHER DOSE, 1 MG OF ATIVAN GIVEN IV, PT CURRENTLY RESTING AGAIN. PRECEDEX REMAINS AT 0.2 MCG/KG/HR, THE HR IS IN THE 49-52 RANGE.
--- NOTE | 2020-06-05 19:20 | NUR ---
ASSUMPTION OF CARE RECEIVED REPORT FROM NADINE GARCIA AT 1900. ASSUMED CARE OF PATIENT. PATIENT CALLING OUT "HELLO" AND "HELP". ASKED PATIENT WHAT THEY NEEDED HELP WITH, PATIENT SAID SHE DIDN'T KNOW. PATIENT FOLLOWED COMMANDS OF OPENING EYES AND DEEP BREATHING BUT DID NOT KNOW WHERE SHE WAS OR THE SITUATION. PATIENT MAKING GRUNTING NOISES BUT DENIED PAIN. REPOSITIONED PATIENT. WILL REVIEW ORDERS AND TREAT PRESCRIED.
--- NOTE | 2020-06-06 | NUR ---
REASSESSMENT NO ACUTE CHANGES FROM INITIAL ASSESSMENT. PATIENT SPONTANEOUSLY AWAKENS, CALLS OUT. ASKS FOR MOM. DOES NOT KNOW WHERE SHE IS OR WHY SHE IN THE HOSPITAL. REORIENTATION PROVIDED, PATIENT REMAINED CONFUSED. ORAL CARE PROVIDED VIA MOUTH SWABS. 02 AT 5L VIA NC MAINTAINING SATS ABOVE 95%. PRECEDEX INFUSING FOR AGITATION. WILL CONTINUE TO MONITOR.
--- NOTE | 2020-06-06 02:13 | NUR ---
AGITATION PATIENT AWAKE ON 0.3MCG/KG OF PRECEDEX, ASKING FOR WATER AND STATING SHE FELT DRY. ORAL CARE PROVIDED AND SMALL SIPS OF WATER PROVIDED. HUMIDIFER ADDED TO OXYGEN AND O2 DECREASED TO 3L VIA NC. ASSISTED PATIENT TO BLOW HER NOSE. ORIENTED PATIENT TO PLACE AND SITUATION. PATIENT WITH CLEAR SPEECH, COOPERATIVE. WITHIN MINUTES PATIENT STARTED SCREAMING "GIVE ME SOMETHING IN MY MOUTH" AND "JUST PUT ME TO SLEEP, I HATE BEING AWAKE AND ANXIOUS". RN EDUCATED PATIENT TO MEDICATIONS BEING GIVEN FOR ANXIETY. PATIENT YELLING CONSTANTLY "JUST PUT ME TO SLEEP" PATIENT CRYING AND SCREAMING OUT LOUD. SCREAMING FOR HER DAD AND MOM. WHEN NURSE TRIED TO EXPLAIN THAT SHE HAD PROVIDED THE PATIENT WITH WATER AND MOISTURE FOR HER OXYGEN AND SHE WAS RECEIVING MEDICATIONS FOR ANXIETY. PATIENT THEN TOLD NURSE SHE COULDN'T BREATHING WHILE SCREAMING IT LOUDLY ACROSS THE UNIT. SATS ABOVE 95% WITH 3L [address]. EXPLAINED TO PATIENT SHE WAS BREATHING, PATIENT YELLED "YOU BITCH, GET OUT OF HERE" UPON RN LEAVING ROOM PATIENT CONTINUED TO SCREAM. WHEN ASKED TO STOP SCREAMING PATIENT JUST YELLED IN STAFF'S FACE. PRECEDEX INCREASED TO 0.5MCG/KG.
[2020-06-06 03:36] LABS: BASOPHILS ABSOLUTE AUTO 0.07 K/mm3 (0.00-0.23); BASOPHILS PERCENT AUTO 1 % (0-2); EOSINOPHILS ABSOLUTE AUTO 0.21 K/mm3 (0.00-0.68); EOSINOPHILS PERCENT AUTO 3 % (0-6); Hemoglobin 12.9 g/dL (11.5-16.0); IMMATURE GRAN ABSOLUTE AUTO 0.02 K/mm3 (0.00-0.10); IMMATURE GRAN PERCENT AUTO 0 % (0-1); LYMPHOCYTES ABSOLUTE AUTO 1.78 K/mm3 (0.84-5.20); LYMPHOCYTES PERCENT AUTO 22 % (21-46); MONOCYTES ABSOLUTE AUTO 0.68 K/mm3 (0.16-1.47); MONOCYTES PERCENT AUTO 8 % (4-13); Mean Corpuscular HGB Conc 30.7 g/dL (31.5-36.5); Mean Corpuscular Volume 101 fL (80-100); Mean Platelet Volume 10.4 fL (9.1-12.4); NEUTROPHILS ABSOLUTE AUTO 5.38 K/mm3 (1.96-9.15); NEUTROPHILS PERCENT AUTO 66 % (41-73); Platelet Count 214 K/mm3 (150-400); RDW Coefficient Variation 14.4 % (11.7-14.2); RDW Standard Deviation 53.1 fL (35.1-46.3); Red Blood Cell Count 4.16 M/mm3 (3.80-5.20); White Blood Cell Count 8.14 K/mm3 (4.00-11.30)
[2020-06-06 03:55] LABS: Alanine Aminotransfer (ALT/SGP 62 U/L (12-78); Albumin, Blood 2.6 g/dL (3.4-5.0); Albumin/Globulin Ratio 0.7 (0.8-1.8); Alk Phos 90 U/L (50-136); Anion Gap 3 mmol/L (6-16); Aspartate Aminotrans (AST/SGOT 39 U/L (12-37); Bilirubin, Total 0.7 mg/dL (0.1-1.0); Blood Urea Nitrogen 13 mg/dL (8-24); Bun/Creatinine Ratio 20.2 (12.0-20.0); CO2, Blood 32 mmol/L (21-32); Calcium, Blood 8.1 mg/dL (8.5-10.1); Chloride, Blood 110 mmol/L (98-108); Creatinine, Blood 0.64 mg/dL (0.40-1.00); Globulin, Blood 3.8 g/dL (2.2-4.0); Glomerular Filtration Rate >60 (60-); Glucose, Blood 111 mg/dL (70-99); Potassium, Blood 3.7 mmol/L (3.5-5.5); Sodium, Blood 145 mmol/L (136-145); Total Protein, Blood 6.4 g/dL (6.4-8.2)
--- NOTE | 2020-06-06 04:06 | NUR ---
REASSESSMENT NO ACUTE CHANGES FROM PREVIOUS ASSESSMENT. VITALS STABLE. PRECEDEX TITRATED DOWN TO 0.4MCG/KG. PATIENT APPEARS COMFORTABLE, WITH EYES CLOSED. RESP E/U. 5L [address]. REPOSITIONED FOR COMFORT. WILL CONTINUE TO MONITOR.
--- NOTE | 2020-06-06 05:56 | NUR ---
SHIFT SUMMARY PATIENT BEGAN SHIFT RESTFUL WITH PRECEDEX, UPON FIRST REPOSITIONING PATIENT BECAME AGITATED, CALLING OUT RESPONDED WELL TO INCREASE OF PRECEDEX. PRECEDEX TITRATED FOR HEART RATE AND FOR PATIENT'S AGITATION. RESTRAINTS IN PLACE DUE TO PATIENT PULLING AT LINES WHEN RESTRAINTS WERE REMOVED. PATIENT DOES NOT ANSWER ORIENTATION QUESTIONS APPROPRIATELY. OFTEN ASKS FOR HER MOM OR DAD AND SCREAMS OUT. O2 TITRATED FROM 3-5L VIA NC NEEDED FOR SATS TO MAINTAIN ABOVE 95%. REPOSITIONED FOR COMFORT. INCONTINENT OF URINE, ATTENDS IN PLACE. FREQUENT ORAL CARE PROVIDED. WILL CONTINUE TO MONITOR AND REPORT TO ONCOMING RN.
--- NOTE | 2020-06-06 06:22 | NUR ---
UPDATE PATIENT AWOKE DURING REPOSITIONING. A/O ASKING HOW LONG SHE HAS BEEN IN THE HOSPITAL. STATING SHE FEELS DRY IN HER NOSE AND MOUTH AND ASKING IF SHE CAN GET UP AND TAKE A SHOWER. WHEN PATIENT COMMUNICATES SHE USES A CRYING VOICE AND KEEPS ASKING WHY WHEN IT IS EXPLAINED THAT SHE CAN'T GET UP ON HER OWN YET OR TAKE A SHOWER WHILE IN ICU. WATER PROVIDED, PATIENT DRANK WITHOUT DIFFICULTIES. TITRATED PRECEDEX DOWN AND TRIALING PATIENT ON ROOM AIR.
--- NOTE | 2020-06-06 07:25 | NUR ---
ASSUMED CARE RECEIVED REPORT FROM RADHA GRIGGS. PT SITTING UP IN BED ASLEEP, ON 2L NC WITH HUMIDITY. SPO2 93%. PRECEDEX IS INFUSING AT 0.2 MCG/KG/HR AND NS AT 100 ML/HR. SWB RESTRAINTS SECURED TO PT AND BED. BED LOW AND LOCKED. CALL LIGHT WITHIN REACH. PT IN SINUS BRADYCARDIA RATE 49-52. BP STABLE.
--- NOTE | 2020-06-06 10:49 | NUR ---
UPDATE PT AWAKE, WATCHING TV IN ROOM - SHE IS CALM, COOPERATIVE, AND ASKING MORE QUESTIONS ABOUT WHY SHES HERE. PT IS ORIENTED TO SELF, SURROUNDINGS, YEAR, AND - BUT UNCLEAR OF HER SITUATION. SHE STATES SHE DOES NOT REMEMBER TAKING ANY DRUGS, AND WAS SURPRISED BY HEARING SHE OVERDOSED. PT HAS BEEN ABLE TO REMEMBER MORE INFORMATION AND COMMUNICATES APPROPRIATELY. SHE HAS BEEN ASKING WHEN SHE CAN GO HOME. PT OFF OF OXYGEN AND ON ROOM AIR, WITH SPO2 90-96% - FOR SOME REASON SHE WILL START TO HOLD HER BREATH AND BEAR DOWN INTERMITTENTLY - WHEN ASKED WHY SHE DOES THIS - SHE SAYS ITS BECAUSE SHES COLD. SPECIALLY ON HER LEFT SIDE, HER SKIN IS WARM TO TOUCH. WARM BLANKETS GIVEN, THERMASTAT INCREASED. PT DENIES PAIN AND SOB. WILL CONTINUE TO MONITOR. PT REMAINS OFF PRECEDEX.
--- NOTE | 2020-06-06 12:22 | NUR ---
UPDATE PT WAS ABLE TO GET TO BEDSIDE COMMODE WITH A +2 ASSIST AND THE WALKER, SHE HAD A DIARRHEAL BM, NO SIGNS OF BLOOD/BLEEDING, THOUGH PT WAS STRAINING. AFTER CLEANED UP SHE MOVED TO THE CHAIR AND ASSISTED WITH HER BATH. AFTERWARDS PT REQUESTED TO GO BACK IN BED. SHE IS NOW ASLEEP, SPO2 DROPPED TO MID 80s% SO 2L NC PLACED BACK ON. DR. EPPS CHANGED HER STATUS TO MEDICAL, ORDERED PHYSICAL THERAPY TO EVALUATE AND TREAT BEFORE CONSIDERING DISCHARGE. PT WAS C/O BACK PAIN, AND HAS CHRONIC BACK PAIN, NORCO WAS ADDED TO HER EMAR SHE TAKES THAT AT HOME. PT HAS BEEN SIPPING ON PO FLUIDS WELL WITH NO EVIDENCE OF ASPIRATION, PT WAS ABLE TO TOLERATE JELLO. WILL ADVANCE TOLERATE. WILL CONTINUE TO MONITOR. VSS. BED LOW AND LOCKED. CALL LIGHT WITHIN REACH.
--- NOTE | 2020-06-06 14:56 | NUR ---
UPDATE PT ABLE TO AMBULATE WITH WALKER AND SBA (FOR PRECAUTION), BUT REQUIRES ASSISTANCE STANDING UP FROM THE CHAIR OR BED. SHE HAS BEEN IN THE CHAIR FOR A FEW HOURS NOW, AND WALKED AROUND THE UNIT TO THE DOOR AND BACK TO HER ROOM. AT BEDSIDE. PT CAN BE TEARFUL, EMOTIONAL, IMPULSIVE, AND IMPATIENT WITH CARE. SHE HAS BEEN USING THE CALL LIGHT VERY FREQUENTLY. SHE IS GETTING STRONGER, BUT STILL WILL REQUIRE EVALUATION FROM PHYSICAL THERAPY TO MAKE SURE ITS SAFE BEFORE SENDING HER HOME.
--- NOTE | 2020-06-06 18:39 | NUR ---
END OF SHIFT UPDATE PT HAS MADE GREAT PROGRESS T/O SHIFT. SHE IS AMBULATING WELL WITH THE WALKER IN HER ROOM. SHE IS ALERT AND ORIENTED X 4, THOUGH STATES SHE DOESN'T REMEMBER THE METH, OR OPIATES, AND STATES SHE DOESN'T THINK SHE OVERDOSED. SHE IS COOPERATIVE WITH CARE, AND WORKED WITH PHYSICAL THERAPY TODAY, THEY RECCOMMENDED THAT WHEN SHES HOME - THAT SHE WILL NEED HOME HEALTH PHYSICAL THERAPY, AND A WALKER. PT HAS BEEN C/O HER CHRONIC BACK PAIN, AND HAS BEEN TAKING NORCO FOR THE PAIN. SHE IS ON ROOM AIR. BED LOW AND LOCKED. CALL LIGHT WITHIN REACH.
--- NOTE | 2020-06-06 23:53 | NUR ---
ASSUMPTION OF CARE REPORT RECEIVED FROM NADINE GARCIA. PT SITTING IN CHAIR WATCHING TV, REQUESTING TO GET BACK IN BED TO SLEEP. PT TALKING ABOUT GOING HOME, ANXIOUS TO LEAVE HOSPITAL. COMPLAINING OF BACK AND L SHOULDER PAIN, MEDICATED PER CHART. IV CURRENTLY SALINE LOCKED.
--- NOTE | 2020-06-07 00:25 | NUR ---
PT MOVING TO ROOM 303, REPORT CALLED AND GIVEN TO LOLIS GARCIA. PT AND ALL BELONGINGS MOVED VIA WHEELCHAIR TO NEW ROOM AT 0020.
--- NOTE | 2020-06-07 04:59 | NUR ---
PT TRANSFERRED FROM ICU @0035 TO RM 303.PT HAS BEEN FIDGETY,FORGETTING TO USE CALL LIGHT,SETTING OFF BED ALARM,IS IMPULSIVE BUT ABLE TO AMBULATE WITH SBA.REPOSITIONING IN BED FREQUENTLY PT REPORTS SHE HAS MINIMAL MEMORY OF OCCURANCES LEADING UP TO HOSPITAL ADMIT. PT DENIES CP OR SOB.MOVES EASILY. I NOTE A SMALL CHAIN OF PIN PRICKED SIZED BLISTERS L WRIST. PT STATES KNOWS ABOUT THEM, BUT CANT REMEMBEER CAUSE.
--- NOTE | 2020-06-07 06:14 | NUR ---
SUMMARY PT RESTING IN BED THIS AM. MED PER REQUEST FOR BACK PAIN AND L SHOULDER PAIN. PT REPORTS TAKES NORCO ROUTINELY AT HOME.
[2020-06-07] MEDS ORDERED: Prinivil10 MG PO (14:53)
--- NOTE | 2020-06-07 16:29 | NUR ---
DISCHARGE NOTE PATIENT DISCHARGED TO HOME. PATIENT ALERT AND ORIENTED THIS SHIFT. PATIENT INDEPENDENT IN THE ROOM, AMBULATING IN THE HALLWAY WITH FWW. PATIENT WORKED WITH PT THIS AM. PATIENT MEDICATED FOR PAIN 2X TODAY. IV REMOVED PRIOR TO DISCHARGE. DISCHARGE AND MEDICATION EDUCATION PROVIDED FOR PATIENT. PATIENT DENIES QUESTIONS AT THIS TIME. PATIENT'S FATHER TO ROOM FOR DISCHARGE. PATIENT TO VEHICLE VIA WHEELCHAIR.
== END 2020-06-07 15:48 | disposition home or self-care (01) | DRG 917 ==
LOC: ER 16:49 → EOR 16:50 → ERHOLD 06-04 02:43 → ICUW 06-04 02:43 → PCU 06-04 13:28 → ICUW 06-04 15:22 → MEDS 06-07 00:35
PROVIDERS: Emergency Medicine; Internal Medicine; Physician Assistant; ADMIT Family Medicine
DX: T40.2X1A Poisoning by other opioids, accidental (unintentional), initial encounter (principal); J96.01 Acute respiratory failure with hypoxia; G92 Toxic encephalopathy; M62.82 Rhabdomyolysis; N39.0 Urinary tract infection, site not specified; Z68.41 Body mass index [BMI] 40.0-44.9, adult; E87.1 Hypo-osmolality and hyponatremia; T43.621A Poisoning by amphetamines, accidental (unintentional), initial encounter; T40.491A Poisoning by other synthetic narcotics, accidental (unintentional), initial encounter; B96.20 Unspecified Escherichia coli [E. coli] as the cause of diseases classified elsewhere; G89.29 Other chronic pain; M54.9 Dorsalgia, unspecified; R51.9 Headache, unspecified; F15.10 Other stimulant abuse, uncomplicated; R73.9 Hyperglycemia, unspecified; I10 Essential (primary) hypertension; E66.01 Morbid (severe) obesity due to excess calories; F17.210 Nicotine dependence, cigarettes, uncomplicated; Z78.1 Physical restraint status; Z88.1 Allergy status to other antibiotic agents; Z88.5 Allergy status to narcotic agent; Z88.8 Allergy status to other drugs, medicaments and biological substances; Z79.899 Other long term (current) drug therapy; Z79.84 Long term (current) use of oral hypoglycemic drugs; Z79.891 Long term (current) use of opiate analgesic
CPT/HCPCS: 36415; 51701; 70450; 71045; 80048; 80053; 81001; 82550; 82553; 82803; 82947; 83930; 84443; 84484; 85025; 85610; 87077; 87086; 87186; 93005; 93010; 96365-59; 96375-59; 97116; 97162; 99285-25; A9270; A9270-GY; G0480; J0360; J0696; J1630; J1650; J2060; J2310; J7030; J7120

== ENCOUNTER 2020-08-01 11:39 | Inpatient (IN) | payer OTHER ==
[~2020-08-01] VITALS: Ht 170.2 cm; Wt 136.4 kg
[~2020-08-01 11:39] MED LIST changes: +ALPR.25; +BUPRENORPHINE HC8 MG SL; +DULO60 PO; +FLUTICASONE PRO16 GM; +GABA300 PO; +HYDCHL50 PO; +METF500 PO; +Prinivil10 MG PO; +Ventolin/Prove6.7 GM INH
[2020-08-01] MEDS ORDERED: BUPRENORPHINE HC8 MG SL (11:55)
[2020-08-01 12:08] LABS: BASOPHILS ABSOLUTE AUTO 0.06 K/mm3 (0.00-0.23); BASOPHILS PERCENT AUTO 0 % (0-2); EOSINOPHILS PERCENT AUTO 0 % (0-6); Hematocrit 44.9 % (33.0-51.0); IMMATURE GRAN ABSOLUTE AUTO 0.41 K/mm3 (0.00-0.10); IMMATURE GRAN PERCENT AUTO 2 % (0-1); LYMPHOCYTES ABSOLUTE AUTO 1.84 K/mm3 (0.84-5.20); LYMPHOCYTES PERCENT AUTO 10 % (21-46); MONOCYTES ABSOLUTE AUTO 1.25 K/mm3 (0.16-1.47); MONOCYTES PERCENT AUTO 7 % (4-13); Mean Corpuscular HGB 30.9 pg (26.0-34.0); Mean Corpuscular HGB Conc 31.2 g/dL (31.5-36.5); Mean Corpuscular Volume 99 fL (80-100); Mean Platelet Volume 10.3 fL (9.1-12.4); NEUTROPHILS ABSOLUTE AUTO 14.89 K/mm3 (1.96-9.15); NEUTROPHILS PERCENT AUTO 81 % (41-73); NRBC ABSOLUTE 0.11 K/mm3 (0.00-0.02); NRBC Auto 0.6 /100 WBC (0.0-0.2); Platelet Count 247 K/mm3 (150-400); RDW Coefficient Variation 14.1 % (11.7-14.2); RDW Standard Deviation 52.7 fL (35.1-46.3); Red Blood Cell Count 4.53 M/mm3 (3.80-5.20); White Blood Cell Count 18.45 K/mm3 (4.00-11.30)
[2020-08-01 12:17] LABS: Source, Urine Catheter
[2020-08-01 12:29] LABS: Albumin/Globulin Ratio 0.6 (0.8-1.8); Alk Phos 110 U/L (50-136); Anion Gap 8 mmol/L (6-16); Beta-hydroxybutyrate 5.1 mg/dL (0.2-2.8); Bilirubin, Total 0.5 mg/dL (0.1-1.0); Blood Urea Nitrogen 36 mg/dL (8-24); CO2, Blood 27 mmol/L (21-32); Calcium, Blood 8.4 mg/dL (8.5-10.1); Chloride, Blood 102 mmol/L (98-108); Creatine Kinase MB 7.2 ng/mL (0.0-3.6); Creatinine, Blood 2.25 mg/dL (0.40-1.00); Ethanol (Alcohol), Blood, Med <3 mg/dL; Globulin, Blood 4.7 g/dL (2.2-4.0); Glomerular Filtration Rate 24 (60-); Glucose, Blood 165 mg/dL (70-99); Magnesium, Blood 1.7 mg/dL (1.6-2.4); Salicylate 5.3 mg/dL (2.8-20.0); Sodium, Blood 137 mmol/L (136-145); Total Protein, Blood 7.7 g/dL (6.4-8.2)
[2020-08-01 12:30] LABS: Appearance, Urine Cloudy (Clear); Bilirubin, Urine Neg (Neg); Blood, Urine 5+ (Neg); Color, Urine Yellow (P-Yellow); Glucose Qualitative, Urine Neg (Neg); Ketones, Urine Neg (Neg); Leukocyte Esterase, Urine 2+ (Neg); Nitrite, Urine Neg (Neg); Protein, Urine 3+ (Neg); Specific Gravity, Urine 1.025 (1.003-1.022); Urobilinogen, Urine NORM (Normal)
[2020-08-01 12:30] LABS: International Normalized Ratio 1.28; Prothrombin Time Results 13.6 Sec (9.7-11.5)
[2020-08-01 12:41] LABS: Alanine Aminotransfer (ALT/SGP 3250 U/L (12-78); Aspartate Aminotrans (AST/SGOT 5616 U/L (12-37); CPK Creatine Kinase 1492 U/L (26-193); Creatine Kinase MB Index 0.5 (0.0-4.0)
[2020-08-01 12:42] LABS: Acetaminophen, Random <2.0 ug/mL (10.0-30.0)
[2020-08-01 12:43] LABS: Troponin I 0.556 ng/mL (0.000-0.040)
[2020-08-01 13:02] LABS: U Amphetamine Screen Not Detected; U Barbituate Screen Not Detected; U Benzodiazapine Screen Not Detected; U Buprenorphine Screen DETECTED; U Cannabinoids Screen Not Detected; U Cocaine Screen Not Detected; U Methadone Screen Not Detected; U Methamphetamine Screen Not Detected; U Opiates Screen Not Detected; U Oxycodone Screen Not Detected; U Phencyclidine Screen Not Detected; U Propoxyphene Screen Not Detected
[2020-08-01 13:05] LABS: Bacteria Few /hpf; Red Blood Cells, Urine 0-2 /hpf (0-2); Squamous Epithelial Cells Few /hpf (Few)
[2020-08-01 13:06] LABS: Amorphous Mod (0-Heavy)
[2020-08-01 13:19] LABS: PCO2 Arterial 45.5 mmHg (35-45); PO2 Arterial 67.6 mmHg (80-100); pH Blood Arterial 7.38 (7.35-7.45)
--- NOTE | 2020-08-01 16:00 | NUR ---
CARE ASSUMED PT TO ICU 13 FROM ER AT 1515, INTUBATED AND SEDATED, VSS. HR 70'S SINUS, BP 160'S/70'S. LS COARSE ON L, CLEAR ON R, LARGE AMOUNTS XIE SECRETIONS FROM ETT, SUSPECTED ASPIRATION OF EMESIS PRIOR TO HOSPITAL ARRIVAL. VENT AC 16, Vt 450, PEEP 5, FIO2 75% ON ARRIVAL, DECREASED TO 65% BY RT, SPO2 >95%. PT NOT OVERBREATHING THE VENT AT THIS TIME, DOES NOT OPEN EYES OR MOVE EXTREMS, GRIMACES TO ORAL CARE, COUGH AND GAG PRESENT, GABRIELA 3MM, NO OTHER RESPONSES NOTED. PROPOFOL 30MCG/KG/MIN, ACETYLCYSTINE INFUSING PER PHARMACY FOR SUSPECTED DRUG OVERDOSE, UNKNOWN WHAT MEDICATIONS WERE TAKEN. NS AT 100ML/HR. OGT TO LIWS WITH SMALL AMOUNT OF BROWN OUTPUT. VAIL SECURED, PATENT AND DRAINING TO GRAVITY, URINE APPEARS CONCENTRATED BUT CLEAR YELLOW. SKIN INTACT. LABS DRAWN, DR. JACOBSON IN TO ASSESS. NO FAMILY AT BEDSIDE, ADMISSION FORMS INCOMPLETE.
--- NOTE | 2020-08-01 16:32 | NUR ---
will follow up with pt and pt for follow up care.
[2020-08-01 18:44] LABS: Albumin, Blood 2.5 g/dL (3.4-5.0); Albumin/Globulin Ratio 0.6 (0.8-1.8); Bilirubin, Total 0.4 mg/dL (0.1-1.0); Bun/Creatinine Ratio 21.4 (12.0-20.0); Calcium, Blood 8.2 mg/dL (8.5-10.1); Creatinine, Blood 1.73 mg/dL (0.40-1.00); Globulin, Blood 4.4 g/dL (2.2-4.0); Potassium, Blood 3.8 mmol/L (3.5-5.5); Total Protein, Blood 6.9 g/dL (6.4-8.2)
--- NOTE | 2020-08-01 19:28 | NUR ---
END OF SHIFT PT REMAINS MINIMALLY RESPONSIVE, ONLY GRIMACES TO NOXIOUS STIMULI, NO MOVEMENT OF EXTREMS NOTED, OCCASIONALLY OVERBREATHING VENT SLIGHTLY WHEN STIMULATED. VENT SETTINGS AC 16, Vt 450, PEEP 5, FIO2 40%, RR 16-18, SPO2 MID 90'S, SECRETIONS REMAIN LARGE AND BROWN, LS COARSE ON L. HR SINUS, BP ELEVATED, 180-190 SYSTOLIC, MEDICATED WITH HYDRALAZINE WITH MINIMAL RESULTS, SBP NOW 170'S, HR REMAINS 70'S SINUS. SMALL AMOUNT OF SECRETIONS FROM OGT, VAIL PATENT WITH ADEQUATE OUTPUT AT THIS TIME. 1800 LABS DRAWN, LIVER ENZYMES INCREASING, RENAL FUNCTION SLIGHTLY IMPROVED. POISON CONTROL CALLED TO ENCOURAGE DEPOT MANAGER TO CONSULT WITH TIRE BEADER MAKER. DR. JACOBSON NOTIFIED OF 1800 LAB RESULTS, LACTIC RESULT, AND REQUEST FOR TOXOCOLOGY CONSULT. SPOKE WITH TOXOCOLOGIST, PLAN TO RESUME ACETYLCYSTINE PLANNED, NO ADDITIONAL FLUID BOLUSES, NO PLAN FOR DIALYSIS AT THIS TIME. REPEAT TROPONIN ORDERED FOR AM. PROPOFOL REMAINS AT 30MCG/KG/MIN.
--- NOTE | 2020-08-01 20:08 | NUR ---
PATIENT INTUBATED AND SEDATED VENT AC 16, TV 450, PEEP 5, FIO2 40%. PROPOFOL 30 MCG PATIENT GRIMACING WITH ORAL CARE, NO MOVEMENT SEEN IN EXTREMITIES. NOT FOLLOWING DIRECTIONS. OG IN PLACE, FLUSHED AND CLAMPED. HYPERTENSION, HYDRALAZINE, LABETALOL NEEDED. NAC CONTINUES PER PHARMACY BAG #3 STARTED.
--- NOTE | 2020-08-01 21:32 | NUR ---
KEN FROM POISON CONTROL GIVEN UPDATE. NO NEW SUGGESTIONS AT THIS TIME.
[2020-08-01] MEDS ORDERED: HYDR1TAB94 PO (22:42)
--- NOTE | 2020-08-02 00:27 | NUR ---
KEN FROM POISON CONTROL RECOMMENDING A REPEAT SALICYLATE LEVEL FOR THE MORNING.
--- NOTE | 2020-08-02 02:49 | NUR ---
OG LEAKING BROWN BILE WITH EACH COUGH, OG PLACED BACK TO LIS.
[2020-08-02 03:25] LABS: BASOPHILS ABSOLUTE AUTO 0.11 K/mm3 (0.00-0.23); BASOPHILS PERCENT AUTO 1 % (0-2); EOSINOPHILS ABSOLUTE AUTO 0.02 K/mm3 (0.00-0.68); EOSINOPHILS PERCENT AUTO 0 % (0-6); Hemoglobin 13.9 g/dL (11.5-16.0); IMMATURE GRAN ABSOLUTE AUTO 0.23 K/mm3 (0.00-0.10); IMMATURE GRAN PERCENT AUTO 1 % (0-1); LYMPHOCYTES ABSOLUTE AUTO 3.42 K/mm3 (0.84-5.20); LYMPHOCYTES PERCENT AUTO 17 % (21-46); MONOCYTES ABSOLUTE AUTO 0.67 K/mm3 (0.16-1.47); MONOCYTES PERCENT AUTO 3 % (4-13); Mean Corpuscular HGB 31.4 pg (26.0-34.0); Mean Corpuscular HGB Conc 33.1 g/dL (31.5-36.5); Mean Corpuscular Volume 95 fL (80-100); Mean Platelet Volume 10.8 fL (9.1-12.4); NEUTROPHILS ABSOLUTE AUTO 15.48 K/mm3 (1.96-9.15); NEUTROPHILS PERCENT AUTO 78 % (41-73); NRBC ABSOLUTE 0.23 K/mm3 (0.00-0.02); NRBC Auto 1.2 /100 WBC (0.0-0.2); Platelet Count 196 K/mm3 (150-400); RDW Coefficient Variation 14.3 % (11.7-14.2); RDW Standard Deviation 49.9 fL (35.1-46.3); Red Blood Cell Count 4.43 M/mm3 (3.80-5.20); White Blood Cell Count 19.93 K/mm3 (4.00-11.30)
[2020-08-02 03:39] LABS: International Normalized Ratio 1.35; Prothrombin Time Results 14.3 Sec (9.7-11.5)
[2020-08-02 03:47] LABS: PO2 Arterial 57.1 mmHg (80-100); pH Blood Arterial 7.44 (7.35-7.45)
[2020-08-02 04:28] LABS: Albumin, Blood 2.4 g/dL (3.4-5.0); Albumin/Globulin Ratio 0.6 (0.8-1.8); Bilirubin, Total 0.4 mg/dL (0.1-1.0); Bun/Creatinine Ratio 27.3 (12.0-20.0); Calcium, Blood 8.2 mg/dL (8.5-10.1); Creatinine, Blood 1.1 mg/dL (0.40-1.00); Globulin, Blood 4.2 g/dL (2.2-4.0); Magnesium, Blood 1.6 mg/dL (1.6-2.4); Phosphorus, Blood 1.8 mg/dL (2.5-4.9); Potassium, Blood 3.1 mmol/L (3.5-5.5); Salicylate 3.7 mg/dL (2.8-20.0); Total Protein, Blood 6.6 g/dL (6.4-8.2)
[2020-08-02 04:51] LABS: Troponin I 0.707 ng/mL (0.000-0.040)
--- NOTE | 2020-08-02 05:50 | NUR ---
DOCTOR INDIRA NOTIFIED OF AM LABS, SEE NEW ORDERS
--- NOTE | 2020-08-02 07:22 | NUR ---
SUMMARY PATIENT REMAINS INTUBATED AND SEDATED PROPOFOL 30 MCG CONTINUES TO GRIMACE WITH ORAL CARE AND REPOSITIONING, AT TIMES APPEARS TO BE SUCKING OR CHEWING ON ETT. FENTANYL IV GIVEN ONCE. VENT REMAINS AC 16, TV 450, PEEP 5, FIO2 40% SUCTIONING SMALL AMT OF WHITE SPUTUM, LARGE AMT OF CLEAR ORAL SECRETIONS. OG REMAINS IN PLACE LIS STARTED WHEN OG HAD SOME LEAKING OF BROWN BILE AFTER COUGHING DURING SUCTIONING.
--- NOTE | 2020-08-02 08:20 | NUR ---
CARE ASSUMED ASSESSMENTS COMPLETED, PT REMAINS SEDATED WITH 30MCG PROPOFOL, VENT SETTINGS AC 16, VT 450, PEEP 5, FIO2 40%, RR 16, SPO2 94%. LS COARSE IN R BASE WITH WHEEZES T/O, LARGE AMOUNT OF XIE SECRETIONS FROM ETT. PT DOES NOT OPEN EYES OR MOVE EXTREMETIES, DOES GRIMACE TO ORAL CARE AND CHEW ON ETT OCCASIONALLY. HR 60'S SINUS, BP STABLE. ACETYLCYSTEINE INFUSING PER PHARMACY, KPHOS INFUSING. SEDATION VACATION COMPLETED, PT BECAME AGITATED, GRIMACING AND COUGHING, DID NOT OPEN EYES OR TRACK, DID NOT FOLLOW COMMANDS. FAINT MOVEMENT NOTED IN LUE, NO OTHER RESPONSES. RR INCREASED TO 22, SPO2 92%, HR 80'S, SBP 150'S. PT RESEDATED, FENTANYL ADMINISTERED, VS RETURNING TO BASELINE, PT RESTING CALMLY NOW. CUFF LEAK NOTED, AIR ADDED, RT AWARE.
--- NOTE | 2020-08-02 10:44 | NUR ---
POISON CONTROL, PROLONGED QTC SPOKE WITH ISSAC AT POISON CONTROL REGARDING ACETYLCYSTEINE, SUGGESTION RECEIVED TO CONTINUE INFUSION UNTIL AST <1000. ISSAC ALSO NOTIFIED OF QTC 0.50, SUGGESTION TO KEEP MAG >2.0 AND POTASSIUM 4-4.5. PT CURRENTLY RECEIVING KPHOS AND MAG, WILL CHECK EKG AFTER ELECTROLYTE REPLACEMENT COMPLETED. DR. EPPS IN TO ASSESS.
--- NOTE | 2020-08-02 12:40 | NUR ---
ETT EXCHANGE DR. MAYS AND RT AT BEDSIDE TO EXCHANGE ETT D/T CUFF LEAK. 10MG ETOMIDATE AND 20MG ROCURONIUM ADMINISTERED, ETT EXCHANGED BY DR. MAYS USING GLIDESCOPE AND BOUGEE, NO DIFFICULTIES, PLACEMENT CONFIRMED WITH AUSCULTATION, MECHANICAL VENTILLATION RESUMED. TUBE IS 8.0, 24CM KRYSTAL, CXR TAKEN POST PROCEDURE. PT TOLERATED WELL, VSS. VENT SETTINGS UNCHANGED.
[2020-08-02 16:08] LABS: Alanine Aminotransfer (ALT/SGP 2902 U/L (12-78); Albumin, Blood 2.2 g/dL (3.4-5.0); Albumin/Globulin Ratio 0.5 (0.8-1.8); Alk Phos 92 U/L (50-136); Anion Gap 7 mmol/L (6-16); Aspartate Aminotrans (AST/SGOT 2271 U/L (12-37); Bilirubin, Total 0.5 mg/dL (0.1-1.0); Blood Urea Nitrogen 21 mg/dL (8-24); Bun/Creatinine Ratio 26.7 (12.0-20.0); CO2, Blood 29 mmol/L (21-32); Calcium, Blood 8.2 mg/dL (8.5-10.1); Chloride, Blood 106 mmol/L (98-108); Creatinine, Blood 0.79 mg/dL (0.40-1.00); Globulin, Blood 4.1 g/dL (2.2-4.0); Glomerular Filtration Rate >60 (60-); Glucose, Blood 194 mg/dL (70-99); Sodium, Blood 142 mmol/L (136-145); Total Protein, Blood 6.3 g/dL (6.4-8.2)
--- NOTE | 2020-08-02 19:06 | NUR ---
END OF SHIFT VENT SETTINGS AND PROPOFOL RATE UNCHANGED, PT REMAINS MINIMALLY RESPONSIVE, GRIMACES AND COUGHS WITH ORAL CARE. NO CUFF LEAK NOTED AFTER ETT EXCHANGE, PT HAS HAD SMALL/MODERATE AMOUNTS OF FRANSISCO ETT SECRETIONS SINCE ETT REPLACED. LS REMAIN COARSE, NEB TREATMENTS STARTED TODAY FOR WHEEZING. HR REMAINS SINUS, QT PROLONGATION REMAINS PRESENT AFTER ELECTROLYTE REPLACEMENT, DR. MAYS AWARE, POTASSIUM BEING REPLACED, REPEAT LABS FOR AM. BP ELEVATED THIS EVENING, MEDICATED WITH HYDRALAZINE, SBP 160'S AT THIS TIME. OGT REMAINS TO LIWS, NO BM TODAY. GOOD URINE OUTPUT. SPOUSE IN FOR BRIEF VISIT THIS EVENING, HIM AND PT'S FATHER WERE BOTH UPDATED.
--- NOTE | 2020-08-02 22:36 | NUR ---
PATIENT INTUBATED AND SEDATED, COUGHING AND BITING ETT, FENTANYL IV GIVEN WITH GOOD RESULTS. PROPOFOL TITRATED TO 35 MCG. NO MOVEMENT SEEN TO EXTREMITIES, NOT OPENING EYES, OR FOLLOWING DIRECTIONS. ETT TUBE WITH VENT SET AT AC 16, TV 450, PEEP 5, FIO2 35% SUCTIONING BLOODING SPUTUM. OG REMAINS IN PLACE TO LIS DRAINING SMALL AMT OF BROWN BILE.
--- NOTE | 2020-08-02 23:08 | NUR ---
POISON CONTROL GIVEN UPDATE AND THEY REQUESTED A PT WITH INR WITH THE MORNING LABS. NO OTHER SUGGESTIONS AT THIS TIME.
[2020-08-03 05:05] LABS: BASOPHILS ABSOLUTE AUTO 0.08 K/mm3 (0.00-0.23); BASOPHILS PERCENT AUTO 1 % (0-2); EOSINOPHILS ABSOLUTE AUTO 0.14 K/mm3 (0.00-0.68); EOSINOPHILS PERCENT AUTO 1 % (0-6); Hematocrit 38.9 % (33.0-51.0); IMMATURE GRAN ABSOLUTE AUTO 0.24 K/mm3 (0.00-0.10); IMMATURE GRAN PERCENT AUTO 2 % (0-1); LYMPHOCYTES ABSOLUTE AUTO 2.98 K/mm3 (0.84-5.20); LYMPHOCYTES PERCENT AUTO 19 % (21-46); MONOCYTES PERCENT AUTO 3 % (4-13); Mean Corpuscular HGB 32.2 pg (26.0-34.0); Mean Corpuscular HGB Conc 33.4 g/dL (31.5-36.5); Mean Corpuscular Volume 96 fL (80-100); Mean Platelet Volume 10.7 fL (9.1-12.4); NEUTROPHILS ABSOLUTE AUTO 12.02 K/mm3 (1.96-9.15); NEUTROPHILS PERCENT AUTO 75 % (41-73); NRBC ABSOLUTE 0.15 K/mm3 (0.00-0.02); NRBC Auto 0.9 /100 WBC (0.0-0.2); Platelet Count 173 K/mm3 (150-400); RDW Coefficient Variation 14.6 % (11.7-14.2); RDW Standard Deviation 50.9 fL (35.1-46.3); Red Blood Cell Count 4.04 M/mm3 (3.80-5.20); White Blood Cell Count 15.96 K/mm3 (4.00-11.30)
[2020-08-03 05:20] LABS: International Normalized Ratio 1.16; Prothrombin Time Results 12.4 Sec (9.7-11.5)
--- NOTE | 2020-08-03 05:39 | NUR ---
PROPOFOL OFF FOR WEAN. PATIENT GRIMACING, COUGHING, BITING ETT, AND MOVING BOTH ARMS LEFT MORE THAN THE RIGHT, AND MOVING BOTH FEET, BUT NOT TO DIRECTIONS. NOT OPENING EYES. FACE BECOMING RED AND DIAPHORETIC AFTER WEAN DONE. PROPOFOL RESTARTED AND FENTANYL GIVEN AFTER WEAN COMPLETE. SEE RT CHARTING FOR WEAN
[2020-08-03 05:47] LABS: Alanine Aminotransfer (ALT/SGP 2560 U/L (12-78); Albumin, Blood 2.3 g/dL (3.4-5.0); Albumin/Globulin Ratio 0.6 (0.8-1.8); Alk Phos 94 U/L (50-136); Anion Gap 8 mmol/L (6-16); Aspartate Aminotrans (AST/SGOT 1392 U/L (12-37); Bilirubin, Total 0.5 mg/dL (0.1-1.0); Blood Urea Nitrogen 15 mg/dL (8-24); Bun/Creatinine Ratio 27.3 (12.0-20.0); CO2, Blood 28 mmol/L (21-32); Calcium, Blood 7.9 mg/dL (8.5-10.1); Chloride, Blood 106 mmol/L (98-108); Creatinine, Blood 0.55 mg/dL (0.40-1.00); Glomerular Filtration Rate >60 (60-); Glucose, Blood 172 mg/dL (70-99); Magnesium, Blood 1.8 mg/dL (1.6-2.4); Potassium, Blood 3.3 mmol/L (3.5-5.5); Sodium, Blood 142 mmol/L (136-145); Total Protein, Blood 6.3 g/dL (6.4-8.2)
--- NOTE | 2020-08-03 06:58 | NUR ---
SUMMARY PATIENT REMAINS INTUBATED AND SEDATED PROPOFOL 45 MCG WITH FENTANYL GIVEN TWICE DURING THE NIGHT WHEN PATIENT BECAME RESTLESS AND COUGHING. VENT SET AT AC 16, TV 450, PEEP 5, FIO2 45%. NAC INFUSION CONTINUES. OG REMAINS TO LIS WITH SMALL AMT OF BROWN BILE.
--- NOTE | 2020-08-03 08:00 | NUR ---
INITIAL ASSESSMENT PATIENT INTUBATED AND SEDATED. PATIENT RESPONDS TO PAINFUL STIMULI. SCLERAL EDEMA NOTED. NO SIGNS OF PAIN NOTED. PATIENT AFEBRILE. PATIENT ON VENT SETTINGS OF AC 16, TV 450, PEEP 5 AND 45% FIO2. WHEEZES AUSCULTATED T/O LUNG LOBES. SMALL AMOUNT OF THIN, BLOODY SECRETIONS NOTED WITH ETT SUCTIONING. PATIENT IN SR, HR IN THE 60S. SBP 120S TO 130S. HYPOACTIVE BS NOTED. OG TUBE TO LIS; SMALL AMOUNT OF GREEN DRAINAGE NOTED. DATE OF LAST BM UNKNOWN. VAIL IN PLACE DRAINING AGATA COLORED URINE. SKIN APPEARS INTACT. ACETYLCYSTEINE INFUSING AT 65.6 MLS/ HOUR, PROPOFOL AT 45 MCG/ KG/ MINUTE, NS AT 100 MLS/ HOUR. BED LOW, CALL LIGHT IN REACH. WILL CONTINUE TO MONITOR PATIENT FREQUENTLY THROUGHOUT SHIFT.
--- NOTE | 2020-08-03 08:46 | NUR ---
POISON CONTROL UPDATED ON PATIENT. INFORMED TO KEEP NAC ON UNTIL AST UNDER 1000.
--- NOTE | 2020-08-03 12:00 | NUR ---
PATIENT AFEBRILE. HR IN THE 60S. SBP LOW 100S TO 140S. DR. MAYS INFORMED NURSE THAT NO SEDATION VACATION NEEDED TO BE PERFORMED TODAY. NO SIGNS OF PAIN NOTED. NO OTHER ACUTE CHANGES TO NOTE ON AT THIS TIME. WILL CONTINUE TO MONITOR.
[2020-08-03] MEDS ORDERED: Ondansetron Odt8 MG MM (15:25)
[2020-08-03] MEDS ORDERED: Lisinopril-Hct1 EAC4 PO (15:28)
[2020-08-03] MEDS ORDERED: SULFAMETHOXAZO1 EAC1 PO (15:29)
[2020-08-03] MEDS ORDERED: BENZ100A PO (15:33)
[2020-08-03] MEDS ORDERED: MECL25 PO (15:34)
[2020-08-03] MEDS ORDERED: ATORVASTATIN CA40 MG PO (15:35)
[2020-08-03] MEDS ORDERED: TOLT2 PO (15:37)
[2020-08-03] MEDS ORDERED: POTA10T PO (15:37)
[2020-08-03] MEDS ORDERED: AMOCLA875 PO (15:39)
[2020-08-03 19:21] LABS: Albumin, Blood 2.1 g/dL (3.4-5.0); Albumin/Globulin Ratio 0.5 (0.8-1.8); Bilirubin, Direct 0.2 mg/dL (0.0-0.3); Bilirubin, Indirect 0.3 mg/dL (0.1-0.7); Bilirubin, Total 0.5 mg/dL (0.1-1.0); Globulin, Blood 4.1 g/dL (2.2-4.0); Phosphorus, Blood 2.4 mg/dL (2.5-4.9); Potassium, Blood 3.1 mmol/L (3.5-5.5); Total Protein, Blood 6.2 g/dL (6.4-8.2)
--- NOTE | 2020-08-03 19:33 | NUR ---
DOCTOR DAVON NOTIFIED OF REPEAT LABS BY LES GARCIA. PLAN TO FINISH CURRENT BAG OF NAC. REPLACE POTASSIUM AND PHOS.
--- NOTE | 2020-08-03 22:32 | NUR ---
PATIENT REMAINS INTUBATED AND SEDATED PROPOFOL FOR SEDATION, COUGHING, GRIMACING, AND BITING ETT WITH ANY STIMULI. NOT OPENING EYES AND NOT FOLLOWING ANY DIRECTIONS. VENT AC 16, TV 450, PEEP 5, FIO2 35% SUCTIONING DARK BLOODY SPUTUM. OG IN PLACE WITH VITAL HP AT 25 CC/HR GOAL RATE IS 40 CC/HR, PLAN TO TITRATE AT 0000 IF RESIDUAL REMAINS LOW. NAC COMPLETE AND DC'D. POTASSIUM AND KPHOS REPLACEMENT IN PROGRESS.
[2020-08-04 05:26] LABS: BASOPHILS PERCENT AUTO 1 % (0-2); EOSINOPHILS PERCENT AUTO 4 % (0-6); Hematocrit 41.4 % (33.0-51.0); Hemoglobin 13.6 g/dL (11.5-16.0); IMMATURE GRAN ABSOLUTE AUTO 0.15 K/mm3 (0.00-0.10); IMMATURE GRAN PERCENT AUTO 1 % (0-1); LYMPHOCYTES ABSOLUTE AUTO 2.65 K/mm3 (0.84-5.20); LYMPHOCYTES PERCENT AUTO 19 % (21-46); MONOCYTES ABSOLUTE AUTO 0.61 K/mm3 (0.16-1.47); MONOCYTES PERCENT AUTO 4 % (4-13); Mean Corpuscular HGB 31.8 pg (26.0-34.0); Mean Corpuscular HGB Conc 32.9 g/dL (31.5-36.5); Mean Corpuscular Volume 97 fL (80-100); Mean Platelet Volume 10.7 fL (9.1-12.4); NEUTROPHILS ABSOLUTE AUTO 10.29 K/mm3 (1.96-9.15); NEUTROPHILS PERCENT AUTO 72 % (41-73); NRBC ABSOLUTE 0.05 K/mm3 (0.00-0.02); NRBC Auto 0.3 /100 WBC (0.0-0.2); Platelet Count 162 K/mm3 (150-400); RDW Coefficient Variation 15.3 % (11.7-14.2); RDW Standard Deviation 52.9 fL (35.1-46.3); Red Blood Cell Count 4.28 M/mm3 (3.80-5.20)
[2020-08-04 06:17] LABS: Alanine Aminotransfer (ALT/SGP 1953 U/L (12-78); Albumin, Blood 2.5 g/dL (3.4-5.0); Albumin/Globulin Ratio 0.6 (0.8-1.8); Alk Phos 97 U/L (50-136); Anion Gap 5 mmol/L (6-16); Aspartate Aminotrans (AST/SGOT 508 U/L (12-37); Bilirubin, Total 0.7 mg/dL (0.1-1.0); Blood Urea Nitrogen 11 mg/dL (8-24); Bun/Creatinine Ratio 23.8 (12.0-20.0); CO2, Blood 28 mmol/L (21-32); Calcium, Blood 8.4 mg/dL (8.5-10.1); Chloride, Blood 107 mmol/L (98-108); Creatinine, Blood 0.46 mg/dL (0.40-1.00); Globulin, Blood 4.3 g/dL (2.2-4.0); Glomerular Filtration Rate >60 (60-); Glucose, Blood 169 mg/dL (70-99); Potassium, Blood 3.8 mmol/L (3.5-5.5); Sodium, Blood 140 mmol/L (136-145); Total Protein, Blood 6.8 g/dL (6.4-8.2)
--- NOTE | 2020-08-04 06:45 | NUR ---
SUMMARY PATIENT REMAINS INTUBATED AND SEDATED PROPOFOL 45 MCG. DURING WEAN WITH PROPOFOL OFF PATIENT COUGHING AND CHEWING ON ETT, OPENING EYES SLIGHTLY NOT FOLLOWING DIRECTIONS OR FOCUSING ON ANYONE IN THE ROOM. WITH PROPOFOL PATIENT GRIMACING WITH ORAL CARE AND REPOSITIONING. VENT SET AT AC 16, TV 450, PEEP 5, FIO2 35% SUCTIONING DARK BLOOD TO CLEAR SPUTUM VIA ETT. COPIOUS AMT OF CLEAR ORAL SECRETIONS WHEN SHE IS AWAKE. MOVING BOTH ARMS RIGHT MORE THAN LEFT. ONLY SLIGHT MOVEMENT SEEN TO FEET. OG IN PLACE WITH VITAL HP AT GOAL RATE OF 40 CC/HR.
--- NOTE | 2020-08-04 08:07 | NUR ---
ASSUMED CARE REPORT FROM PENG GARCIA AT 0700. PT INTUBATED AND SEDATED. VENT SETTINGS AC 16/450/5/35%. PROPOFOL GTT AT 45 MCG/KG/MIN. LUNGS c EXPIRATORY WHEEZE IN RIGHT LOBE, CLEAR LEFT. SMALL AMOUNT OF BLOODY SECRETIONS THROUGH ETT. PT GRIMACES c CARE, CLAMPS JAW c ORAL CARE. DOES NOT FOLLOW COMMANDS. COUGH/GAG/SWALLOW REFLEX PRESENT. BRITTANY. SCLERA SWELLING AND REDNESS PRESENT. SR, RATE 60'S. BP STABLE. GENERALIZED EDEMA, 3+BILATERAL HANDS, 2+ EXTREMITIES. ABD ROUND, SOFT, NON TENDER. BT X 4. TUBE FEEDS AT GOAL OF 40 ML/HR c 30 ML FLUSH q4 HR. NO RESIDUALS THIS AM. VAIL PATENT, DRAINING CLEAR AGATA URINE TO GRAVITY. PIV X3. WILL CONTINUE TO MONITOR.
--- NOTE | 2020-08-04 17:57 | NUR ---
SHIFT SUMMARY PT REMAINS INTUBATED AND SEDATED. VENT SETTINGS SPONT 8/5 35% SINCE 1045. TOLERATING WELL, RATE 16-20, TIDAL VOLUMES HIGH 300'S. SEDATION ADJUSTED, PROPOFOL GTT AT 10 MCG/KG/MIN, PRECEDEX 0.3 MCG/KR/HR, FENTANYL PRN. ATTEMPTING TO MINIMIZE FENT AND PROPOFOL. PT OPENS EYES SPONTANEOUSLY, DOES NOT FOLLOW COMMANDS. COUGH/GAG/SWALLOW REFLEX. COUGHS c CARE. LUNGS INTERMITTANLY WHEEZY. BLOOD TINGED SECRETIONS THROUGH ETT. TUBE FEEDS AT GOAL, MINIMAL RESIDUALS. ABD ROUND, SOFT NON TENDER. VAIL PATENT, DRAINING AGATA URINE TO GRAVITY. BP STABLE. HR 55-65. WILL CONTINUE TO MONITOR UNTIL REPORT TO ONCOMING NURSE.
[2020-08-05 03:25] LABS: BASOPHILS ABSOLUTE AUTO 0.06 K/mm3 (0.00-0.23); BASOPHILS PERCENT AUTO 1 % (0-2); EOSINOPHILS ABSOLUTE AUTO 0.51 K/mm3 (0.00-0.68); EOSINOPHILS PERCENT AUTO 5 % (0-6); Hematocrit 38.5 % (33.0-51.0); Hemoglobin 12.5 g/dL (11.5-16.0); IMMATURE GRAN ABSOLUTE AUTO 0.07 K/mm3 (0.00-0.10); IMMATURE GRAN PERCENT AUTO 1 % (0-1); LYMPHOCYTES ABSOLUTE AUTO 2.37 K/mm3 (0.84-5.20); LYMPHOCYTES PERCENT AUTO 22 % (21-46); MONOCYTES PERCENT AUTO 7 % (4-13); Mean Corpuscular HGB 31.9 pg (26.0-34.0); Mean Corpuscular HGB Conc 32.5 g/dL (31.5-36.5); Mean Corpuscular Volume 98 fL (80-100); Mean Platelet Volume 11.1 fL (9.1-12.4); NEUTROPHILS ABSOLUTE AUTO 7.12 K/mm3 (1.96-9.15); NEUTROPHILS PERCENT AUTO 66 % (41-73); NRBC ABSOLUTE 0.02 K/mm3 (0.00-0.02); NRBC Auto 0.2 /100 WBC (0.0-0.2); Platelet Count 172 K/mm3 (150-400); RDW Coefficient Variation 15.3 % (11.7-14.2); RDW Standard Deviation 54.4 fL (35.1-46.3); Red Blood Cell Count 3.92 M/mm3 (3.80-5.20); White Blood Cell Count 10.83 K/mm3 (4.00-11.30)
[2020-08-05 03:43] LABS: Anion Gap 4 mmol/L (6-16); Blood Urea Nitrogen 14 mg/dL (8-24); Bun/Creatinine Ratio 28.7 (12.0-20.0); CO2, Blood 29 mmol/L (21-32); Calcium, Blood 8.3 mg/dL (8.5-10.1); Chloride, Blood 110 mmol/L (98-108); Creatinine, Blood 0.49 mg/dL (0.40-1.00); Glomerular Filtration Rate >60 (60-); Glucose, Blood 151 mg/dL (70-99); Potassium, Blood 4.1 mmol/L (3.5-5.5); Sodium, Blood 143 mmol/L (136-145)
--- NOTE | 2020-08-05 06:26 | NUR ---
END OF SHIFT SUMMARY: PATIENT HAS BEEN RESTING ON VENT MOST OF EVENING. PLACED BACK ON AC ON THE VENT DUE TO COUGHING AND NOT TOLERATING BEING ON PRESSURE SUPPORT AFTER THE LONG DAY SHE HAS ON DAYSHIFT YESTERDAY. PATIENT WILL QUICKLY DESAT WHEN COUGHING, HER FACE TURNS RED/PURPLE, AND SATS DROP INTO 70S. PATIENT WOKE UP WITH SEDATION WEANED OFF THIS MORNING BUT SPOKE TO RT AND DECIDED TO WAIT TO PUT ON PRESSURE SUPPORT AGAIN. SEDATION HAS BEEN WEANED WAY DOWN. SHE CURRENTLY IS ONLY ON 0.3 OF PRECEDEX. WHEN AWAKE, SHE STARTS TO OPEN EYES BUT DOES NOT FOLLOW COMMANDS.
--- NOTE | 2020-08-05 08:02 | NUR ---
Care Assumed Pt intubated and sedated. On Propofol 10 mcg/kg/min and Precedex 0.3 mcg/kg/hr via right AC IV. Pt unable to follow commands, opens eyes but not tracking. Coughing with increased peak pressure, vent settings changed by RT FROM AC to PS 8/5, FIO2 35%, pt tolerating well. VHP @ Goal, BT hypoactive. Temp bee in place, 99.1 temp, adria urine (75) in bag currently. SWB. NSR.
--- NOTE | 2020-08-05 09:40 | NUR ---
Spoke to via phone Pts , Spencer, states patient was sleeping on sofa one day prior to calling EMS. Updated on current care bieng provided and patient opening eyes but unable to follow commands. All questions answered.
--- NOTE | 2020-08-05 10:02 | NUR ---
Provider visit and Poison control call Dr. Parson would like to treat pain with Fentanyl PRN and titrate Precedex, as needed. Hoping for patients mentation to improve to possible extubate. Giuseppe, from poison control called to ask about AST/ALT levels and patient status. Updated on vital signs, labs, and current medication. Dhaval states, "Patient may have overdosed on Baclofen" but has nothing else to add.
--- NOTE | 2020-08-05 18:30 | NUR ---
Shift Summary No changes in vent settings or Precedex. Pt opens eyes spontanously but not tracking or following commands. Pts was at bedside for 2 hours, pt having coughing spasms but unable to tracking/follow . Thick yellow secreations present from ETT and oral secreations, frequent suctioning. Temp bee in place with dark adria urine. NSR. Pt hypertensive during coughing spasms and SBP 150-160's other times. VHP at 60 ml/hr, not at goal yet, residual of 150. Will report to oncoming shift. SWB in place.
[2020-08-06 03:32] LABS: BASOPHILS ABSOLUTE AUTO 0.06 K/mm3 (0.00-0.23); BASOPHILS PERCENT AUTO 1 % (0-2); EOSINOPHILS ABSOLUTE AUTO 0.47 K/mm3 (0.00-0.68); EOSINOPHILS PERCENT AUTO 4 % (0-6); Hematocrit 37.1 % (33.0-51.0); Hemoglobin 11.7 g/dL (11.5-16.0); IMMATURE GRAN ABSOLUTE AUTO 0.07 K/mm3 (0.00-0.10); IMMATURE GRAN PERCENT AUTO 1 % (0-1); LYMPHOCYTES ABSOLUTE AUTO 2.42 K/mm3 (0.84-5.20); LYMPHOCYTES PERCENT AUTO 19 % (21-46); MONOCYTES ABSOLUTE AUTO 0.86 K/mm3 (0.16-1.47); MONOCYTES PERCENT AUTO 7 % (4-13); Mean Corpuscular HGB 31.3 pg (26.0-34.0); Mean Corpuscular HGB Conc 31.5 g/dL (31.5-36.5); Mean Corpuscular Volume 99 fL (80-100); Mean Platelet Volume 10.8 fL (9.1-12.4); NEUTROPHILS ABSOLUTE AUTO 9.04 K/mm3 (1.96-9.15); NEUTROPHILS PERCENT AUTO 70 % (41-73); Platelet Count 175 K/mm3 (150-400); RDW Coefficient Variation 15.6 % (11.7-14.2); RDW Standard Deviation 56.2 fL (35.1-46.3); Red Blood Cell Count 3.74 M/mm3 (3.80-5.20); White Blood Cell Count 12.92 K/mm3 (4.00-11.30)
[2020-08-06 04:28] LABS: Magnesium, Blood 1.9 mg/dL (1.6-2.4)
[2020-08-06 04:29] LABS: Alanine Aminotransfer (ALT/SGP 757 U/L (12-78); Albumin, Blood 2.2 g/dL (3.4-5.0); Albumin/Globulin Ratio 0.6 (0.8-1.8); Alk Phos 82 U/L (50-136); Anion Gap 3 mmol/L (6-16); Aspartate Aminotrans (AST/SGOT 88 U/L (12-37); Bilirubin, Total 0.6 mg/dL (0.1-1.0); Blood Urea Nitrogen 20 mg/dL (8-24); Bun/Creatinine Ratio 39.7 (12.0-20.0); CO2, Blood 29 mmol/L (21-32); Calcium, Blood 8.5 mg/dL (8.5-10.1); Chloride, Blood 110 mmol/L (98-108); Glomerular Filtration Rate >60 (60-); Glucose, Blood 188 mg/dL (70-99); Potassium, Blood 3.6 mmol/L (3.5-5.5); Sodium, Blood 142 mmol/L (136-145); Total Protein, Blood 6.2 g/dL (6.4-8.2)
--- NOTE | 2020-08-06 06:01 | NUR ---
SHIFT SUMMARY NO ACUTE CHANGES OVERNIGHT. ASSESSMENT IS CHARTED. VSS. WILL CONTINUE TO MONITOR.
--- NOTE | 2020-08-06 08:10 | NUR ---
[place] of Care: Care assumed a 0700hr. Patient intubated and sedated with precedex gtt at 0.4mcg/kg/hr. Patient opens eyes spontaneously, turned head toward verbal stimuli, but not following any commands. Spontaneous movement of all extremities, appears restless when stimulated with cares/turns. Occasionally turns head [id number], pupils equal and reactive. Vent to PS of 8/5/40%, spO2 99-100%, RT Sabina decreased FiO2 to 30%. Respiratory rate 11-14, excessive oral secretions and large amount of thin clear ET secretions. Occasional coughing but otherwise tolerating vent. Peripheral IV's x2 patent and intact. [place] cath patent and intact, draining dark yellow clear urine. TF is Vital HP at goal rate of 65ml/hr with 30ml H2O flush q4hr, residual of 5ml this morning. Bilateral soft wrist restraints in place to protect line, tubes, cords. Will consult with Dr. Bernal this morning r/t possible extubation today, but concern for excess secretions. Will continue to monitor.
--- NOTE | 2020-08-06 18:13 | NUR ---
Shift Summary: Patient's neuro status improved throughout shift. At approx 1100hr, patient able to follow simple commands to squeeze hands and nod head yes/no, although ability to follow commands is intermittent. Consulted with Dr. Bernal this morning, decision made to not attempt to extubate patient today and re-evaluate tomorrow. Patient's VS remained stable, no changes to vent settings since this morning, continues to tolerate PS mode without difficulty. Patient hypertensive at times, x1 prn hydralazine given with good effect. Patient also treated with prn fentanyl which was effective for pain management and to decrease BP. Also consulted with Dr. Bernal r/t I/O status, received order for x1 dose IV lasix 40mg. Good effect noted from lasix, 1900ml output this shift. Peripheral IV's remain patent and intact, also inserted Power-glide to CHAIM. Patient appears calm and comfortable when not stimulated for cares. Will continue to monitor until report to NOC shift RN.
--- NOTE | 2020-08-06 20:33 | NUR ---
08/06 @ 19:35 WITNESSED BRADYCARDIA, LOW RATE OF 33, GAVE 1 AMP (1 MG) OF ATROPINE. HR IMPROVED, HANGING STEADILY IN MID 60S - LOW 70S. OBTAINED ORDER FROM DR BURRELL FOR AN EPINEPHRINE DRIP, DO NOT BEGIN UNLESS HR CONSISTENTLY IN LOW 40S. VSS AT THIS TIME, DECREASED LEVOPHED DRIP. WILL CONTINUE TO MONITOR.
[2020-08-07 04:24] LABS: BASOPHILS ABSOLUTE AUTO 0.07 K/mm3 (0.00-0.23); BASOPHILS PERCENT AUTO 1 % (0-2); EOSINOPHILS ABSOLUTE AUTO 0.65 K/mm3 (0.00-0.68); EOSINOPHILS PERCENT AUTO 5 % (0-6); Hematocrit 35.6 % (33.0-51.0); Hemoglobin 11.5 g/dL (11.5-16.0); IMMATURE GRAN ABSOLUTE AUTO 0.08 K/mm3 (0.00-0.10); IMMATURE GRAN PERCENT AUTO 1 % (0-1); LYMPHOCYTES ABSOLUTE AUTO 3.18 K/mm3 (0.84-5.20); LYMPHOCYTES PERCENT AUTO 24 % (21-46); MONOCYTES ABSOLUTE AUTO 0.95 K/mm3 (0.16-1.47); MONOCYTES PERCENT AUTO 7 % (4-13); Mean Corpuscular HGB 31.8 pg (26.0-34.0); Mean Corpuscular HGB Conc 32.3 g/dL (31.5-36.5); Mean Corpuscular Volume 98 fL (80-100); Mean Platelet Volume 10.6 fL (9.1-12.4); NEUTROPHILS ABSOLUTE AUTO 8.47 K/mm3 (1.96-9.15); NEUTROPHILS PERCENT AUTO 63 % (41-73); Platelet Count 195 K/mm3 (150-400); RDW Coefficient Variation 15.5 % (11.7-14.2); RDW Standard Deviation 55.1 fL (35.1-46.3); Red Blood Cell Count 3.62 M/mm3 (3.80-5.20)
[2020-08-07 04:57] LABS: Alanine Aminotransfer (ALT/SGP 494 U/L (12-78); Albumin, Blood 2.2 g/dL (3.4-5.0); Albumin/Globulin Ratio 0.6 (0.8-1.8); Alk Phos 73 U/L (50-136); Anion Gap 4 mmol/L (6-16); Aspartate Aminotrans (AST/SGOT 60 U/L (12-37); Bilirubin, Total 0.4 mg/dL (0.1-1.0); Blood Urea Nitrogen 23 mg/dL (8-24); Bun/Creatinine Ratio 42.5 (12.0-20.0); CO2, Blood 30 mmol/L (21-32); Calcium, Blood 8.6 mg/dL (8.5-10.1); Chloride, Blood 107 mmol/L (98-108); Creatinine, Blood 0.54 mg/dL (0.40-1.00); Glomerular Filtration Rate >60 (60-); Glucose, Blood 173 mg/dL (70-99); Potassium, Blood 3.4 mmol/L (3.5-5.5); Sodium, Blood 141 mmol/L (136-145); Total Protein, Blood 6.2 g/dL (6.4-8.2)
--- NOTE | 2020-08-07 05:18 | NUR ---
SHIFT SUMMARY NO ACUTE CHANGES OVERNIGHT. ASSESSMENT IS CHARTED. VSS. WILL CONTINUE TO MONITOR.
--- NOTE | 2020-08-07 08:49 | NUR ---
AM NOTE... ASSUMED CARE OF PT AT 0700. PT IS INTUBATED AND SEDATED, ABLE TO NOD YES OR NO APPROPRIATELY TO QUESITONS. PT IS ON SPONTAINOUS PRESSURE SUPPORT 8/5 40% WITH O2 SATS >90%. L/S COARSE T/O DIM IN THE BASES, PT HAS MODERATE AMOUNT OF THICK XIE SECRETIONS FROM THE ET TUBE, PT HAS MODERATE AMOUNT OF ORAL SECRETIONS WELL. BT PRESENT AND HYPOACTIVE, ABD IS SOFT AND NONTENDER TO PALP. PT HAS EDEMA NOTED TO HER BLE AND HANDS AND TRACE EDEMA TO HER EYE LIDS. PT'S VAIL IS PATENT AND DRAINING DARK YELLOW URINE TO GRAVITY. PT IS IN NSR IN THE 60'S-70'S. PT IS HYPERTENSIVE WITH SBPs 180'S-200'S, PT MEDICATED WITH IV HYDRALAZINE PER ORDERS THIS DID NOT HELP, PT'S SBPs CONTINUE TO BE >180'S, PT WAS MEDICATED WITH IV FENTANYL 50MCG PER EMAR. THIS HELPED BRING THE SBPs DOWN TO <160'S. PT IS ON 0.5MCG OF PRECEDEX TO HELP KEEP HER CALM WHILE ON THE VENT. WILL CONTINUE TO MONITOR.
--- NOTE | 2020-08-07 10:09 | NUR ---
PT UPDATE.... DR. BURRELL AT THE BEDSIDE TO ASSESS THE PT. THE PLAN IS TO STOP THE TUBE FEEDS, DECREASE THE PRECEDEX AND PLAN FOR EXTUBATION THIS AFTERNOON. PT'S CALLED AND WAS UPDATED ON THE PT'S CONDTION AND PLAN OF CARE. HE PLANS TO COME IN FOR VISITING HOURS. PT'S HOME DOSE OF LISINOPRIL WAS STARTED THIS AM IN HOPES TO IMPROVE THE PT'S BPs. WILL CONTINUE TO MONITOR.
--- NOTE | 2020-08-07 12:45 | NUR ---
PT UPDATE... AT 1225 PT WAS EXTUBATED BY RT VIRIDIANA Calhoun PT WAS EXTUBATED TO 4L NC WITH O2 SATS >90%. PT'S VOICE IS HOARSE AND SHE IS ASKING FOR WATER. PT HAS A HARSH DRY COUGH AT THIS TIME. PT'S CALLED AND MESSAGE WAS LEFT ON HIS VOICE MAIL. WILL CONTINUE TO MONITOR.
--- NOTE | 2020-08-07 13:11 | NUR ---
PT UPDATE... PT'S AT THE BEDSIDE, HE WAS UPDATED ON THE EVENTS OF THE DAY AND THE EXTUBATION. PT WAS TITRATED FROM 4L NC TO 2L NC WITH O2 SATS >90%. WILL CONTINUE TO MONITOR.
--- NOTE | 2020-08-07 19:37 | NUR ---
SHIFT SUMMARY... NO ACUTE NEGATIVE CHANGES NOTED SINCE PREVIOUS NOTES, PT HAS BEEN ON 2L NC WITH O2 SATS >90%. PT HAS BEEN TAKING THE NC OFF, THE O2 SAT MONITOR AND THE BP CUFF, PT EDUCATED ON THE IMPORTANCE OF MONITORING HER VS ESPECIALLY AFTER EXTUBATION. PT VERBALIZED HER UNDERSTANDING. PT'S VAIL DRAINED 2700MLS OF URINE THIS SHIFT. PT'S VOICE AND COUGH CONTINUE TO BE HOARSE AND WEAK. PT C/O OF CHRONIC BACK PAIN AND WAS MEDICATED PER EMAR. PT'S AT THE BEDSIDE FOR VISITING HOURS. CALL LIGHT IN REACH WILL CONTINUE TO MONITOR UNTIL REPORT IS GIVEN TO ONCOMING RN.
[2020-08-08 03:43] LABS: BASOPHILS ABSOLUTE AUTO 0.08 K/mm3 (0.00-0.23); BASOPHILS PERCENT AUTO 1 % (0-2); EOSINOPHILS ABSOLUTE AUTO 0.69 K/mm3 (0.00-0.68); EOSINOPHILS PERCENT AUTO 5 % (0-6); Hematocrit 37.6 % (33.0-51.0); Hemoglobin 12.2 g/dL (11.5-16.0); IMMATURE GRAN ABSOLUTE AUTO 0.11 K/mm3 (0.00-0.10); IMMATURE GRAN PERCENT AUTO 1 % (0-1); LYMPHOCYTES ABSOLUTE AUTO 2.73 K/mm3 (0.84-5.20); LYMPHOCYTES PERCENT AUTO 21 % (21-46); MONOCYTES ABSOLUTE AUTO 0.93 K/mm3 (0.16-1.47); MONOCYTES PERCENT AUTO 7 % (4-13); Mean Corpuscular HGB 32.3 pg (26.0-34.0); Mean Corpuscular HGB Conc 32.4 g/dL (31.5-36.5); Mean Corpuscular Volume 100 fL (80-100); Mean Platelet Volume 10.4 fL (9.1-12.4); NEUTROPHILS ABSOLUTE AUTO 8.61 K/mm3 (1.96-9.15); NEUTROPHILS PERCENT AUTO 66 % (41-73); Platelet Count 229 K/mm3 (150-400); RDW Coefficient Variation 15.3 % (11.7-14.2); RDW Standard Deviation 55.1 fL (35.1-46.3); Red Blood Cell Count 3.78 M/mm3 (3.80-5.20); White Blood Cell Count 13.15 K/mm3 (4.00-11.30)
[2020-08-08 04:07] LABS: Alanine Aminotransfer (ALT/SGP 373 U/L (12-78); Albumin, Blood 2.6 g/dL (3.4-5.0); Albumin/Globulin Ratio 0.6 (0.8-1.8); Alk Phos 85 U/L (50-136); Anion Gap 4 mmol/L (6-16); Aspartate Aminotrans (AST/SGOT 45 U/L (12-37); Bilirubin, Total 0.7 mg/dL (0.1-1.0); Blood Urea Nitrogen 18 mg/dL (8-24); Bun/Creatinine Ratio 36.4 (12.0-20.0); CO2, Blood 31 mmol/L (21-32); Chloride, Blood 105 mmol/L (98-108); Creatinine, Blood 0.49 mg/dL (0.40-1.00); Globulin, Blood 4.2 g/dL (2.2-4.0); Glomerular Filtration Rate >60 (60-); Glucose, Blood 128 mg/dL (70-99); Potassium, Blood 3.2 mmol/L (3.5-5.5); Sodium, Blood 140 mmol/L (136-145); Total Protein, Blood 6.8 g/dL (6.4-8.2)
--- NOTE | 2020-08-08 06:23 | NUR ---
SHIFT SUMMARY PT HAS REMAINED CONFUSED. HAVE OBSERVED PT HOLDING BREATH A COUPLE OF TIMES, INSTRUCTED PT TO BREATHE, PT ASKED "HOW DO YOU KNOW I'M HOLDING MY BREATH?" TO WHICH I RESPONDED "BY WATCHING YOU NOT BREATH." PT STATES "WHY AM I DOING THAT?" TO WHICH I RESPOND "I HONESTLY DON'T KNOW, I WOULD JUST ASK YOU TO FOCUS ON YOUR BREATHING, TAKE GOOD, DEEP BREATHS IN AND DON'T HOLD YOUR BREATH." ATTEMPTED NITRO PASTE FOR BLOOD PRESSURE CONTROL, SOMEWHAT HELPED BUT STILL HAVE HYPERTENSIVE READS, USUALLY IMPROVED WITH PAIN MEDICATION. GAVE HYDRALAZINE ONCE. ASSESSMENT IS CHARTED. VSS. WILL CONTINUE TO MONITOR.
--- NOTE | 2020-08-08 11:38 | NUR ---
REASSESSMENT PT HAS BEEN AWAKE, ORIENTED TO PERSON AND PLACE, BUT A LITTLE SLOW IN HER RESPONSES. VOICE IS STILL RASPY. SHE HAS HAD DIFFICULTY FINDING A COMFORTABLE POSITION, ASKING FREQUENTLY TO BE REPOSITIONED IN BED THEN GOT PT UP TO A CHAIR AND SHE LIKED THAT BETTER FOR AWHILE, BUT IS HAVING TROUBLE GETTING COMFORTABLE AGAIN. PT'S BP HAS BEEN HIGH THIS MORNING. DISCUSSED WITH DR. BURRELL AND HE GAVE ORDERS FOR LASIX AND METOPROLOL. GAVE PT SIPS OF WATER THIS MORNING VIA TEASPOON AND SHE TOLERATED WELL WITHOUT ANY S/S OF ASPIRATING. GAVE MORNING PILLS CRUSHED IN APPLESAUCE, THEN GAVE METOPROLOL WITH WATER AND PT DID WELL. LUGNS ARE CLEAR. PT DOES GET DYSPNEIC WITH ACTIVITY, BUT RECOVERS QUICKLY. NO OTHER CONCERNS AT THIS TIME. CONTINUING TO MONITOR.
[2020-08-08 13:53] LABS: Free Thyroxine 1.26 ng/dL (0.70-1.60)
[2020-08-08 13:56] LABS: Thyroid Stimulating Hormone 1.73 uIU/mL (0.360-4.800); Triiodothyronine, Free 1.61 pg/mL (2.18-3.98)
--- NOTE | 2020-08-08 16:42 | NUR ---
SHIFT SUMMARY PT CONTINUES TO BE DROWSY, BUT HER ALERTNESS HAS INCREASED THROUGHOUT THE SHIFT. SHE IS COMMUNICATING MORE WITH STAFF, STILL HAS A SLIGHT DELAY ANSWERING QUESTIONS. ORIENTED TO PERSON, PLACE, MONTH AND YEAR. SHE REMEMBERS THE NAME OF STAFF MEMBERS THAT HAVE BEEN IN THE ROOM. LUNGS ARE CLEAR ON THE R, FEW CRACKELS IN THE BASE OF THE L. REMAINS ON 2L/NC WITH SPO2 94%. SR, BP IMPROVING WITH SBP IN THE 150S NOW. 3L OUT VIA VAIL TODAY AFTER LASIX. PT HAD A BM. SHE SPENT ABOUT HALF OF THE DAY IN THE CHAIR. SHE IS EATING, ALTHOUGH REQUIRES ASSISTANCE DUE TO WEAKNESS AND POOR COORDINATION. WHILE SHE WAS IN THE CHAIR SHE STOOD WITH 2 PERSON ASSIST. SHE IS VERY WEAK SO PT/OT ORDERED PER DR. BURRELL. SPOKE WITH DR. VENTURA THIS EVENING ABOUT PT'S IMPROVING BP AND HE OK'D FOR PT TO BE PCU STATUS. NO OTHER CONCERNS AT THIS TIME. CONTINUING TO MONITOR.
[2020-08-09 03:40] LABS: BASOPHILS ABSOLUTE AUTO 0.07 K/mm3 (0.00-0.23); BASOPHILS PERCENT AUTO 1 % (0-2); EOSINOPHILS ABSOLUTE AUTO 0.58 K/mm3 (0.00-0.68); EOSINOPHILS PERCENT AUTO 5 % (0-6); Hematocrit 37.9 % (33.0-51.0); Hemoglobin 12.2 g/dL (11.5-16.0); IMMATURE GRAN ABSOLUTE AUTO 0.07 K/mm3 (0.00-0.10); IMMATURE GRAN PERCENT AUTO 1 % (0-1); LYMPHOCYTES ABSOLUTE AUTO 2.86 K/mm3 (0.84-5.20); LYMPHOCYTES PERCENT AUTO 22 % (21-46); MONOCYTES ABSOLUTE AUTO 1.05 K/mm3 (0.16-1.47); MONOCYTES PERCENT AUTO 8 % (4-13); Mean Corpuscular HGB 31.4 pg (26.0-34.0); Mean Corpuscular HGB Conc 32.2 g/dL (31.5-36.5); Mean Corpuscular Volume 97 fL (80-100); Mean Platelet Volume 10.5 fL (9.1-12.4); NEUTROPHILS ABSOLUTE AUTO 8.11 K/mm3 (1.96-9.15); NEUTROPHILS PERCENT AUTO 64 % (41-73); Platelet Count 267 K/mm3 (150-400); RDW Coefficient Variation 14.9 % (11.7-14.2); RDW Standard Deviation 53.1 fL (35.1-46.3); Red Blood Cell Count 3.89 M/mm3 (3.80-5.20); White Blood Cell Count 12.74 K/mm3 (4.00-11.30)
[2020-08-09 04:01] LABS: Alanine Aminotransfer (ALT/SGP 268 U/L (12-78); Albumin, Blood 2.5 g/dL (3.4-5.0); Albumin/Globulin Ratio 0.6 (0.8-1.8); Alk Phos 85 U/L (50-136); Anion Gap 4 mmol/L (6-16); Aspartate Aminotrans (AST/SGOT 35 U/L (12-37); Bilirubin, Total 0.6 mg/dL (0.1-1.0); Blood Urea Nitrogen 17 mg/dL (8-24); Bun/Creatinine Ratio 29.3 (12.0-20.0); CO2, Blood 32 mmol/L (21-32); Calcium, Blood 9.2 mg/dL (8.5-10.1); Chloride, Blood 103 mmol/L (98-108); Creatinine, Blood 0.58 mg/dL (0.40-1.00); Globulin, Blood 4.3 g/dL (2.2-4.0); Glomerular Filtration Rate >60 (60-); Glucose, Blood 125 mg/dL (70-99); Potassium, Blood 3.6 mmol/L (3.5-5.5); Sodium, Blood 139 mmol/L (136-145); Total Protein, Blood 6.8 g/dL (6.4-8.2)
--- NOTE | 2020-08-09 05:31 | NUR ---
END OF SHIFT SUMMARY: PATIENT HAS BEEN A/O X4 TONIGHT AND VERY PLEASANT. SHE FOLLOWS ALL COMMANDS BUT IS SLOW TO RESPOND MOST OF THE TIME. HYPERTENSION BEING TREATED WITH SCHEDULED MEDS WELL NITRO OINTEMNT WHICH IS ALSO SCHEDULED AND SEEMS TO BE HELPING. FENTANYL GIVEN X1 FOR PAIN BUT IS MOSTLY JUST UNCOMFORTABLE AT THIS POINT AND IS LOOKING FORWARD TO WORKING WITH THERAPY TODAY. NSR ON 4L O2. PATIENT REQUESTED A FEW SNACKS OVERNIGHT DUE TO BARELY EATING DINNER BECAUSE "IT WAS NASTY." PATIENT REPOSITIONED WITH CEILING LIFT Q2 FOR COMFORT AND FAN UTILIZED TO KEEP COOL
--- NOTE | 2020-08-09 07:30 | NUR ---
received report from Naa GARCIA. She is in bed in the chair postsition and wants to be placed in a chair. She is on 2L O2 via NC and sats >90%. She is alert to self , place , and family and communnicates needs slowly. She states she is in pain but wants to be transferred before getting any thing. VSS See EMR. She MAEW but very weak.
--- NOTE | 2020-08-09 09:30 | NUR ---
Patient transferred to bedside cammode by PT & OT after working with her. We then got her up with two and walker. She can hold herself up, but unable to shuffle feet at this time. Got her back in chair and re-hooked to monitor. Pulled bee as she stated she would all for cammode when needing it. She tolerated breakfast wll with out assist.
--- NOTE | 2020-08-09 13:36 | NUR ---
Patient has been resting and nibbleing on her lunch and doing well. VSS since am meds. She awakens easily for care and assist when needed.
--- NOTE | 2020-08-09 18:38 | NUR ---
Patient continues to rest in chair. Spouse was by for about an hour. Patient received full bed bath and we transfered to bedside cammode and she continues to leak stool , formed and non formed . Finished cleaning her up and she is doing well using walker and placed pull-ups on her and changed linen in chair and placed her back in it by her choice. VSS, See EMR. She only ate partial dinner as she does not like hospital food. She is med no tele status.
--- NOTE | 2020-08-10 06:26 | NUR ---
END OF SHIFT SUMMARY: PATIENT HAS BACK PAIN FROM BEING IN THE BED SO MUCH. PATIENT REQUESTED TO SLEEP IN CHAIR SO SHE CAN LEAN BACK AND FORTH NEEDED. SHE REMAINS A/O X4 AND IS VERY PLEASANT. SHE HAS REMAINED IN NSR, ON ROOM AIR, ANMD DENIES FEELING SOB WHEN GETTING OUT OF BED. PATIENT HAD 2 BM'S AND WILL LET STAFF KNOW WHEN SHE NEEDS CHANGED. SHE GOT OUT OF BED WITH THE HELP OF 1 RN AND HER WALKER AND THERE WERE NO ISSUES EITHER TIME. PATIENT GOT BACK TO BED AROUND 0300 AND IS FINALLY COMFORTABLE ENOUGH TO SLEEP. EAT/SWALLOWING JUST FINE. STILL A LITTLE TOO SLOW/WEAK TO MAKE IT TO THE COMMODE IN TIME BUT IS SLOWLY IMPROVING.
--- NOTE | 2020-08-10 07:25 | NUR ---
Patient sleeping and arouses when using verbal stimuli and is able to answer simple questions before falling abck to sleep. She remains on 2L O2 via NC while sleeping and will try to remove again today. She is alert and oriented and is able to communicate her needs. She has 20ga RAC IV flushed and SL'd. She has PowerGlide to CHAIM and dressing intact and site WNL's and is infusing NS TKO. MAEW but weak.
--- NOTE | 2020-08-10 09:51 | NUR ---
Patient was incontinent to urine in bed and assisted to bedside commode and was given bath . Assisted to reclined after sitting bath and attends change. Aide set her up for breakfast and she tolerated well. VSS, See EMR. She is able to transfer with one assist and is able to lift feet during transfer. She denies an current needs.
--- NOTE | 2020-08-10 11:36 | NUR ---
Patient remains in chair and called to get up on cammode and had 2nd large stool for the day and then PT came in and worked with her. She is doing better pushing up to standing position and transferring with walker. VSS See EMR. She is currently tolerating lunch independently. NS TKO running in PowerGlide.
--- NOTE | 2020-08-10 13:30 | NUR ---
Patient up again to cammode to urinate and had about 200 ml light adria colored urine. She has been doing very well transferring and just needs assistance getting up. VSS, See EMR. Patients memory more clear and is able to communicate her needs. She denies any current needs.
--- NOTE | 2020-08-10 15:30 | NUR ---
NS continues TKO and she has been appropriately calling when needing to get up. VSS See EMR. OT by to work with patient and has just got to room. She remains in chair and states doing OK.
--- NOTE | 2020-08-10 17:26 | NUR ---
Patient's spouse by just after OT had left, OT had taken her to nelly pena and she did well. VSS, See EMR. She has been on RA most of shift and sats >90%. She statyed she will stay in chair until next shift comes in. changed diet to ADA as per request.
--- NOTE | 2020-08-10 18:29 | NUR ---
Spiritual care note: I met with Rody at bedside. She was pleasant and talkative. Rody smiles easily and made little jokes. She tells me that she did not intentially overdose. She does not wish to . 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 "I just accidentally took too many pain pills." I provided prayer and encouragement. She hopes to egt "real food" and to be able to return home soon. No concerns presented. I will remain available.
--- NOTE | 2020-08-10 19:00 | NUR ---
RECEIVED PATIENT FROM RADHA BERRIOS. PT SITTING IN RECLINER, AWAKENED WITH VOICE. SHE HAD EATEN ABOUT 75% OF HER DINNER, BUT STATES THAT HER MOUTH IS SORE. SHE IS TAKING IN FLUIDS WITHOUT INCIDENT, DENIES ANY NEEDS AT THIS TIME.
--- NOTE | 2020-08-10 20:30 | NUR ---
UP TO BSC, ATTENDS CLEAN, PT ABLE TO VOID. COMMUNICATING WELL, ORIENTED AND APPROPRIATE. RETURNS TO RECLINER.
--- NOTE | 2020-08-10 22:30 | NUR ---
PT UP TO BS, USES WALKER, ATTENDS WERE WET. WARM WASHCLOTHS GIVEN AND PT CLEANED UP. PT APPROPRIATE, REMEMBERS MY 'S NAME AND WHERE HE WORKS (WE WERE [employer]), ASKED ABOUT HIM. PT STOOD TO HAVE ATTENDS PULLED UP, LOST HER BALANCE AND LEANED AGAINST THE COUNTER, CAUGHT HERSELF WITH HER ARM. SHE FELT UNSAFE AND LET HERSELF SLIDE TO THE FLOOR. 3 PERSON ASSIST TO GET HER BACK UP FROM SITTING POSITION ON THE FLOOR. PT STATED SHE WAS "NERVOUS". SHE DENIES ANY COMPLAINTS AT THIS TIME, SMALL ABRASION TO RIGHT FOREARM. [facility].
--- NOTE | 2020-08-10 23:58 | NUR ---
PT SITTING UP IN RECLINER, HEAD FOREWARD, FAST ASLEEP.
--- NOTE | 2020-08-11 04:05 | NUR ---
PT IN BED AND NOW SLEEPING.
[2020-08-11 04:28] LABS: BASOPHILS PERCENT AUTO 1 % (0-2); EOSINOPHILS ABSOLUTE AUTO 0.46 K/mm3 (0.00-0.68); EOSINOPHILS PERCENT AUTO 3 % (0-6); Hematocrit 38.7 % (33.0-51.0); Hemoglobin 12.5 g/dL (11.5-16.0); Mean Corpuscular HGB 31.8 pg (26.0-34.0); Mean Corpuscular HGB Conc 32.3 g/dL (31.5-36.5); Mean Corpuscular Volume 99 fL (80-100); Mean Platelet Volume 10.5 fL (9.1-12.4); Platelet Count 266 K/mm3 (150-400); RDW Coefficient Variation 14.7 % (11.7-14.2); RDW Standard Deviation 53.3 fL (35.1-46.3); Red Blood Cell Count 3.93 M/mm3 (3.80-5.20); White Blood Cell Count 13.63 K/mm3 (4.00-11.30)
[2020-08-11 04:30] LABS: IMMATURE GRAN ABSOLUTE AUTO 0.12 K/mm3 (0.00-0.10); IMMATURE GRAN PERCENT AUTO 1 % (0-1); LYMPHOCYTES ABSOLUTE AUTO 4.65 K/mm3 (0.84-5.20); LYMPHOCYTES PERCENT AUTO 34 % (21-46); MONOCYTES PERCENT AUTO 8 % (4-13); NEUTROPHILS PERCENT AUTO 53 % (41-73)
[2020-08-11 04:51] LABS: Alanine Aminotransfer (ALT/SGP 129 U/L (12-78); Albumin, Blood 2.2 g/dL (3.4-5.0); Albumin/Globulin Ratio 0.7 (0.8-1.8); Alk Phos 68 U/L (50-136); Anion Gap 5 mmol/L (6-16); Aspartate Aminotrans (AST/SGOT 22 U/L (12-37); Bilirubin, Total 0.4 mg/dL (0.1-1.0); Blood Urea Nitrogen 16 mg/dL (8-24); Bun/Creatinine Ratio 31.9 (12.0-20.0); CO2, Blood 28 mmol/L (21-32); Calcium, Blood 7.5 mg/dL (8.5-10.1); Chloride, Blood 107 mmol/L (98-108); Globulin, Blood 3.3 g/dL (2.2-4.0); Glomerular Filtration Rate >60 (60-); Glucose, Blood 124 mg/dL (70-99); Magnesium, Blood 1.6 mg/dL (1.6-2.4); Potassium, Blood 3.1 mmol/L (3.5-5.5); Sodium, Blood 140 mmol/L (136-145); Total Protein, Blood 5.5 g/dL (6.4-8.2)
--- NOTE | 2020-08-11 06:50 | NUR ---
KEVIN HAS SLEPT THE LAST FEW HOURS OF THE SHIFT. SHE AWAKENED FOR HER MEDICATIONS AND SWALLOWED WELL, SHE THEN WENT BACK TO SLEEP. NO COMPLAINTS AT THIS TIME.
--- NOTE | 2020-08-11 17:07 | NUR ---
TRANSFER NOTE PT A&Ox4; IMPULSIVE AT TIMES, COOPERATIVE WITH CARE. PT UP IN CHAIR FOR MAJOIRTY OF SHIFT, 1 PERSON ASSIST WITH WALKER AND GAITBELT WHILE AMBULATING. PT DENIES PAIN, CHEST PAIN, [place]A AND DIZZINESS T/O SHIFT. PT SOB WITH AMBULATION, SPO2 >90% ON RA T/O SHIFT; LS DIM. PT RECEIVED KPHOS IV. VSS. PLANS TO DISCHARGE HOME TOMORROW. NO OTHER ACUTE CHANGES NOTED. REPORT GIVEN TO RN ASSUMING CARE OF PATIENT, PT LEFT ROOM AT APPROX 1615.
--- NOTE | 2020-08-11 18:45 | NUR ---
SHIFT SUMMARY PT IS AO AND FORGETFUL AT TIMES. PT DENIES PAIN, N/V, SOB. PT TRANSFERRED FROM PCU AT APPROXIMATELY 1630. PT IS SBA IN ROOM. APPETITE IS GOOD THIS BISI. THIS RN CHANGED THE POWERGLIDE DRESSING THIS BISI. NO PROCEDURES PERFORMED ON THIS UNIT. PLAN IS FOR POSSIBLE DC TOMORROW. PT DID NOT HAVE VISITORS THIS BISI. PT IS IN CHAIR, ALARM ON, CALL LIGHT IN REACH.
--- NOTE | 2020-08-11 22:51 | NUR ---
WITNESSED FALL PT HAD A WITNESSED FALL IN RESTROOM. AUTOMOTIVE SERVICE ASSISTANT WAS PRESENT WHEN PT FELL INTO THE SHOWER STALL. PT DENIES ANY PAIN OR DIZZINESS. PT HAS A ABRASION NOTED ON LEFT ELBOW. PT WAS ATTEMPTING TO SIT ON TOILET BEFORE FALLING. USABILITY ENGINEER NOTIFIED. AMOL
--- NOTE | 2020-08-12 05:47 | NUR ---
SUMMARY PT HAD A WITNESSED FALL. FALL RESULTED IN RIGHT ELBOW ABRASION AND BRUISE, PHOTOS IN CHART. PT HAD NO OTHER ISSUES NOTED. INCREASED FALL PRECAUTIONS HAVE BEEN IMPLEMENTED. PT EAGER TO GO HOME. PT SLEPT T/O REMAINDER OF SHIFT W/O ISSUE. PT CURRENTLY SLEEPING IN NO DISTRESS.
[2020-08-12 06:35] LABS: BASOPHILS ABSOLUTE AUTO 0.11 K/mm3 (0.00-0.23); BASOPHILS PERCENT AUTO 1 % (0-2); EOSINOPHILS PERCENT AUTO 5 % (0-6); Hematocrit 40.2 % (33.0-51.0); Hemoglobin 12.9 g/dL (11.5-16.0); IMMATURE GRAN PERCENT AUTO 1 % (0-1); LYMPHOCYTES PERCENT AUTO 30 % (21-46); MONOCYTES ABSOLUTE AUTO 0.93 K/mm3 (0.16-1.47); MONOCYTES PERCENT AUTO 7 % (4-13); Mean Corpuscular HGB 31.5 pg (26.0-34.0); Mean Corpuscular HGB Conc 32.1 g/dL (31.5-36.5); Mean Corpuscular Volume 98 fL (80-100); Mean Platelet Volume 10.4 fL (9.1-12.4); NEUTROPHILS ABSOLUTE AUTO 7.25 K/mm3 (1.96-9.15); NEUTROPHILS PERCENT AUTO 57 % (41-73); Platelet Count 357 K/mm3 (150-400); RDW Coefficient Variation 14.7 % (11.7-14.2); RDW Standard Deviation 53.5 fL (35.1-46.3); Red Blood Cell Count 4.09 M/mm3 (3.80-5.20); White Blood Cell Count 12.79 K/mm3 (4.00-11.30)
[2020-08-12 06:56] LABS: Alanine Aminotransfer (ALT/SGP 129 U/L (12-78); Albumin, Blood 2.8 g/dL (3.4-5.0); Albumin/Globulin Ratio 0.7 (0.8-1.8); Alk Phos 87 U/L (50-136); Anion Gap 5 mmol/L (6-16); Aspartate Aminotrans (AST/SGOT 19 U/L (12-37); Bilirubin, Total 0.3 mg/dL (0.1-1.0); Blood Urea Nitrogen 21 mg/dL (8-24); Bun/Creatinine Ratio 34.4 (12.0-20.0); CO2, Blood 31 mmol/L (21-32); Chloride, Blood 100 mmol/L (98-108); Creatinine, Blood 0.61 mg/dL (0.40-1.00); Globulin, Blood 4.1 g/dL (2.2-4.0); Glomerular Filtration Rate >60 (60-); Glucose, Blood 164 mg/dL (70-99); Phosphorus, Blood 5.5 mg/dL (2.5-4.9); Potassium, Blood 4.1 mmol/L (3.5-5.5); Sodium, Blood 136 mmol/L (136-145); Total Protein, Blood 6.9 g/dL (6.4-8.2)
[2020-08-12] MEDS ORDERED: AMLO5 PO (11:33)
[2020-08-12] MEDS ORDERED: BISA10S PR (11:33)
[2020-08-12] MEDS ORDERED: LIOT5 PO (11:34)
[2020-08-12] MEDS ORDERED: DOCU LIQUI50 MG/5 ML PO (11:34)
[2020-08-12] MEDS ORDERED: METO25ER PO (11:35)
[2020-08-12] MEDS ORDERED: NYSTATIN100000 UN1 PO (11:36)
[2020-08-12] MEDS ORDERED: LACT PO (11:36)
[2020-08-12] MEDS ORDERED: VISBIOME 112.51 EACH PO (11:42)
--- NOTE | 2020-08-12 12:12 | NUR ---
PT DISCHARGED VIA WC WITH PT BELONGINGS. REVIEWED DC INSTRUCTIONS WITH PT: MEDS, FOLLOW UP, DIET, ACTIVITY. PT VERB UNDERSTANDING.
== END 2020-08-12 12:13 | disposition home health service (06) | DRG 91 ==
LOC: ER 11:39 → ICUW 14:21 → MEDS 08-11 16:00
PROVIDERS: Emergency Medicine; Family Medicine; Internal Medicine; Internal Medicine Critical Care Medicine; Internal Medicine Pulmonary Disease; ADMIT Internal Medicine
PROC: 0BH17EZ Insertion of Endotracheal Airway into Trachea, Via Natural or Artificial Opening (ICD-10-PCS; principal; 2020-08-01)
PROC: 5A1955Z Respiratory Ventilation, Greater than 96 Consecutive Hours (ICD-10-PCS; 2020-08-01)
PROC: 06HY33Z Insertion of Infusion Device into Lower Vein, Percutaneous Approach (ICD-10-PCS; 2020-08-03)
DX: G92 Toxic encephalopathy (principal); K72.00 Acute and subacute hepatic failure without coma; J96.01 Acute respiratory failure with hypoxia; J69.0 Pneumonitis due to inhalation of food and vomit; I21.A1 Myocardial infarction type 2; N17.9 Acute kidney failure, unspecified; Z68.42 Body mass index [BMI] 45.0-49.9, adult; N39.0 Urinary tract infection, site not specified; M62.82 Rhabdomyolysis; F11.20 Opioid dependence, uncomplicated; E87.6 Hypokalemia; E86.1 Hypovolemia; E03.9 Hypothyroidism, unspecified; M54.5 Low back pain; D72.829 Elevated white blood cell count, unspecified; L93.0 Discoid lupus erythematosus; B96.4 Proteus (mirabilis) (morganii) as the cause of diseases classified elsewhere; E66.01 Morbid (severe) obesity due to excess calories; I10 Essential (primary) hypertension; G89.29 Other chronic pain; Z88.8 Allergy status to other drugs, medicaments and biological substances; Z79.899 Other long term (current) drug therapy; Z79.84 Long term (current) use of oral hypoglycemic drugs; Z90.89 Acquired absence of other organs; Z90.49 Acquired absence of other specified parts of digestive tract; Z90.710 Acquired absence of both cervix and uterus
CPT/HCPCS: 31500; 31720; 36415; 36600; 51702; 70450; 71045; 80048; 80053; 80076; 81001; 82010; 82140; 82330; 82550; 82553; 82803; 82947; 83605; 83690; 83735; 84100; 84132; 84145; 84439; 84443; 84481; 84484; 85025; 85610; 87040; 87070; 87086; 87205; 93005; 93010; 93306; 94002; 94003; 94640; 94667; 94668; 94760; 96365-59; 96367-59; 97110; 97116; 97162; 97166; 97530; 97535; 99291-25; 99292; A9270; C1751; C9113; G0480; J0132; J0295; J0360; J1644; J1650; J1940; J2704; J3010; J3475; J3480; J7030; J7040; J7060; J7070; J7120